=== PATIENT | male | born 1950 | race Caucasian/White ===

== ENCOUNTER 2018-10-30 13:17 | Observation (INO) ==
[2018-10-30] MEDS ORDERED: Pantoprazole 80 MG in 0.9 % Sodium Chloride 50 ML IVPB ONE (13:46)
--- NOTE | 2018-10-30 14:18 | Emergency Department Note ---
Disposition Clinical Impression: Elevated troponin, BOBBY (acute kidney injury) GI bleed Qualifiers: GI bleed type/associated pathology: unspecified gastrointestinal hemorrhage type Qualified Code(s): K92.2 - Gastrointestinal hemorrhage, unspecified Anemia Qualifiers: Anemia type: unspecified type Qualified Code(s): D64.9 - Anemia, unspecified Disposition: Admitted As Inpatient Condition: Fair Time of Disposition: 16:36 General Adult HPI - General Chief complaint: ED GI Bleed Stated complaint: black stool, weak Time Seen by Provider: 10/30/18 13:46 Source: patient Limitations: no limitations Nursing Notes Reviewed: Yes Vital Signs Reviewed: Yes - History of Present Illness HPI Narrative: Patient 67M with PMHx of diabetes and ACS x1 cardiac stent on plavix and aspirin presenting for 7 days of black tarry stools. Initially felt constipation, took milk of magnesia and that's when he noticed the stools. Admits to weakness and dizziness with standing. Denies CP, dyspnea, or syncope. Pain Scale: 0 - Related Data Home Medications Medication Instructions Recorded Confirmed Aspirin [Lo-Dose Aspirin EC] 81 mg PO DAILY 07/16/18 10/30/18 Atenolol 100 mg PO BID 07/16/18 10/30/18 Atorvastatin Calcium [Lipitor] 10 mg PO DAILY 07/16/18 10/30/18 Diclofenac Sodium [Voltaren] 75 mg PO BID 07/16/18 10/30/18 Gabapentin [Neurontin] 600 mg PO TID 07/16/18 10/30/18 Glimepiride [Amaryl] 4 mg PO DAILY 07/16/18 10/30/18 Losartan/Hydrochlorothiazide 1 each PO DAILY 07/16/18 10/30/18 [Losartan-Hctz 100-12.5 mg Tab] Metformin HCl [Glucophage] 1,000 mg PO BID 07/16/18 10/30/18 Nitroglycerin [Nitrostat] 0.4 mg SL DAILY PRN 07/16/18 10/30/18 Oxycodone HCl/Acetaminophen 1 each PO Q6H PRN 07/16/18 10/30/18 [Percocet 5-325 mg Tablet] Previous Rx's Medication Instructions Recorded Clopidogrel Bisulfate [Plavix] 75 mg PO DAILY 30 Days #30 tablet 07/16/18 Allergies Allergy/AdvReac Type Severity Reaction Status Date / Time quinapril [From Accupril] Allergy Swelling Verified 07/16/18 07:45 of Lip/Tongue/Throat All systems ED: reviewed and negative except as stated. Review of Systems: As Per HPI Constitutional: Reports: weakness. Denies: fever, chills Cardiovascular: Denies: chest pain, palpitations, dyspnea on exertion, edema, syncope Respiratory: Denies: cough, dyspnea, wheezes Gastrointestinal: Reports: melena. Denies: abdominal pain, nausea, vomiting, diarrhea, constipation, hematemesis, hematochezia Genitourinary: Denies: urgency, dysuria, frequency, hematuria Musculoskeletal: Denies: back pain, neck pain Integumentary: Denies: rash Neurological: Denies: weakness, numbness, paresthesias, confusion, abnormal gait, vertigo Past Medical History - Past Medical History Attestation: Yes The following information was validated with the patient. Medical history: Reports: diabetes, hyperlipidemia, hypertension Psychiatric history: Reports: no psych history - Social History Smoking Status: Never smoker Smokeless Tobacco Status: Yes Alcohol use: Reports: none Drug use: Reports: none Physical Exam CONSTITUTIONAL: Well-appearing; well-nourished; A&O X 3, in no apparent distress HEAD: Normocephalic; atraumatic EYES: PERRL, no scleral icterus NOSE: The nose is normal in appearance without rhinorrhea NECK: No JVD or distended neck veins RESP: Normal chest excursion with respiration; breath sounds clear and equal bilaterally; no wheezes, rhonchi, or rales CARD: Regular rhythm, without murmurs, rub or gallop ABD: Non-distended; non-tender, soft, without rigidity, rebound or guarding,no pulsatile mass RECTAL: Rectal tone intact. Hemoccult Positive. Black stool present. CHEST: No pain with palpation SKIN: Normal for age and race; warm and dry without diaphoresis ; no apparent lesions EXTREMITIES: Pulses are 2 plus and equal times 4 extremities, no peripheral edema or calf muscle pain. - General Limitations: no limitations General appearance: alert, in no apparent distress Course Course Narrative: Patient's lab work patient for hemoglobin of 10.0 which dropped 3 points compared to prior as well as AK I and a mild elevation of troponin which is suspect is due to the acute blood loss anemia. I discussed the patient's case with the hospitalist on-call and he requested consultation to GI speech therapist early intervention which was Dr. Villavicencio and he agreed to see the patient consultation after resuscitation. Discussed that the patient's vital signs have remained stable on the ED. Discussed this with the patient he agrees with the plan for admission. Vital Signs Temperature 98.1 F 10/30/18 13:27 Pulse Rate 75 10/30/18 13:27 Respiratory Rate 16 10/30/18 13:27 Blood Pressure 170/97 10/30/18 13:27 O2 Sat by Pulse Oximetry 98 10/30/18 13:27 Temperature 98.5 F 10/30/18 16:56 Pulse Rate 77 10/30/18 16:56 Respiratory Rate 18 10/30/18 16:56 Blood Pressure 147/68 10/30/18 16:56 O2 Sat by Pulse Oximetry 66 10/30/18 16:56 Oxygen Delivery Oxygen Delivery Room Air Medical Decision Making - Medical Records Medical records reviewed: Yes I reviewed the patient's medical records. - Lab Data Lab results reviewed: Yes I reviewed the patient's lab results. Result diagrams: 10/30/18 13:46 10/30/18 13:46 Lab Results 10/30/18 10/30/18 10/30/18 Range/Units 13:46 13:46 13:46 WBC 11.4 H (4.3-11.1) K/mcL RBC 3.31 L (4.19-5.50) M/mcL Hgb 10.0 L (12.9-16.9) g/dL Hct 30.2 L (37.5-50.1) % MCV 91.2 (83.0-100.0) fL MCH 30.2 (28.0-33.3) pg MCHC 33.1 (31.6-35.5) g/dL RDW 14.6 H (11.5-14.5) % Plt Count 150 (140-400) K/mcL MPV 11.5 (9.4-12.4) fL Immature Gran % 1.0 (0-4) % Seg Neutrophils % 75.7 % Lymphocytes % 10.6 % Monocytes % 7.2 % Eosinophils % 5.2 % Basophils % 0.3 % Neutrophils # 8.7 (1.6-8.9) K/mcL Lymphocytes # 1.2 (0.6-4.6) K/mcL Monocytes # 0.8 (0.0-1.3) K/mcL Eosinophils # 0.6 (0.0-0.6) K/mcL Basophils # 0.0 (0.0-0.2) K/mcL PT 12.3 H (9.4-12.1) Seconds INR 1.1 APTT 32.6 (26.0-36.0) Seconds Sodium 139 (136-145) mEq/L Potassium 4.2 (3.5-5.1) mEq/L Chloride 105 (98-107) mEq/L Carbon Dioxide 24 (23-29) mEq/L BUN 52 H (8-23) mg/dL Creatinine 1.37 H (0.70-1.30) mg/dL Est GFR ( Amer) > 60 (> 60) Est GFR (Non-Af Amer) 52 L (> 60) BUN/Creatinine Ratio 38 H (6-26) Glucose 153 H (70-105) mg/dL Calculated Osmolality 305 H (280-300) Lactic Acid (0.5-2.2) mmol/L Calcium 9.1 (8.6-10.3) mg/dL Total Bilirubin 0.6 (0.3-1.0) mg/dL AST 29 (13-39) Units/L ALT 30 (7-52) Units/L Alkaline Phosphatase 71 (34-104) Units/L Troponin I 0.04 H* (< 0.04) ng/mL Serum Total Protein 6.2 L (6.4-8.9) g/dL Albumin 3.6 (3.5-5.7) g/dL Globulin 2.6 (2.4-3.5) g/dL Albumin/Globulin Ratio 1.4 (1.1-2.2) Lipase 36 (11-82) Units/L Stool Occult Bld Scrn (Negative) Blood Type Antibody Screen 10/30/18 10/30/18 10/30/18 Range/Units 14:04 14:25 14:25 WBC (4.3-11.1) K/mcL RBC (4.19-5.50) M/mcL Hgb (12.9-16.9) g/dL Hct (37.5-50.1) % MCV (83.0-100.0) fL MCH (28.0-33.3) pg MCHC (31.6-35.5) g/dL RDW (11.5-14.5) % Plt Count (140-400) K/mcL MPV (9.4-12.4) fL Immature Gran % (0-4) % Seg Neutrophils % % Lymphocytes % % Monocytes % % Eosinophils % % Basophils % % Neutrophils # (1.6-8.9) K/mcL Lymphocytes # (0.6-4.6) K/mcL Monocytes # (0.0-1.3) K/mcL Eosinophils # (0.0-0.6) K/mcL Basophils # (0.0-0.2) K/mcL PT (9.4-12.1) Seconds INR APTT (26.0-36.0) Seconds Sodium (136-145) mEq/L Potassium (3.5-5.1) mEq/L Chloride (98-107) mEq/L Carbon Dioxide (23-29) mEq/L BUN (8-23) mg/dL Creatinine (0.70-1.30) mg/dL Est GFR ( Amer) (> 60) Est GFR (Non-Af Amer) (> 60) BUN/Creatinine Ratio (6-26) Glucose (70-105) mg/dL Calculated Osmolality (280-300) Lactic Acid 2.3 H (0.5-2.2) mmol/L Calcium (8.6-10.3) mg/dL Total Bilirubin (0.3-1.0) mg/dL AST (13-39) Units/L ALT (7-52) Units/L Alkaline Phosphatase (34-104) Units/L Troponin I (< 0.04) ng/mL Serum Total Protein (6.4-8.9) g/dL Albumin (3.5-5.7) g/dL Globulin (2.4-3.5) g/dL Albumin/Globulin Ratio (1.1-2.2) Lipase (11-82) Units/L Stool Occult Bld Scrn Positive A (Negative) Blood Type A POSITIVE Antibody Screen NEGATIVE - Radiology Data Radiology results reviewed: Yes I reviewed the patient's radiology results. Chest X-Ray 10/30/18 13:47 IMPRESSION: No active cardiopulmonary disease D/ / Erick Green MD / Erick Green MD Interpreting Provider: Erick Green MD - EKG Data EKG #1 EKG attestation: Yes I reviewed and interpreted this EKG. EKG results narrative: EKG done at 13:52 shows sinus rhythm at a rate of 68 bpm. Normal axis. Patient has T-wave inversions in the lateral leads which appear to be chronic from old EKG. This EKG appears improved from his EKG in July 2018 which she had some ST elevations in the anterior precordial leads. Attestation Statement - Attestation Attestation: I, Ruben Simpson, examined this patient and my medical decision-making was reviewed with the INSTALLATION SUPERVISOR/PA/Advanced Practice Nurse/Resident Physician. I agree with the documented findings, disposition and treatment plan as described except to the extent set forth below. 67-year-old male presents emergency Department with concerns of weakness, black stools over the past 2 weeks. Patient states he initially had constipation and then took milk of magnesia which produced a bowel movement. The bowel movement was dark and tarry and has been so since that time. Patient reports that he is becoming progressively more weak and fatigued. Vital signs have been stable in the emergency department. Hemoglobin is decreased compared to previous. Patient has a history of recent cardiac disease and has 2 stents recently placed, currently taking aspirin and Plavix. Patient will be admitted to the hospitalist for further care and evaluation. Blood was ordered from emergency department. Protonix were ordered and given in emergency department.
[2018-10-30 14:29] LABS: Basophils % 0.3 %; Eosinophils # 0.6 K/mcL (0.0-0.6); Eosinophils % 5.2 %; Hematocrit 30.2 % (37.5-50.1); Lymphocytes # 1.2 K/mcL (0.6-4.6); Lymphocytes % 10.6 %; Mean Corpuscular HGB Conc 33.1 g/dL (31.6-35.5); Mean Corpuscular Hemoglobin 30.2 pg (28.0-33.3); Mean Corpuscular Volume 91.2 fL (83.0-100.0); Mean Platelet Volume 11.5 fL (9.4-12.4); Monocytes # 0.8 K/mcL (0.0-1.3); Monocytes % 7.2 %; Neutrophils # 8.7 K/mcL (1.6-8.9); Platelet Count 150 K/mcL (140-400); Red Blood Count 3.31 M/mcL (4.19-5.50); Red Cell Distribution Width 14.6 % (11.5-14.5); Segmented Neutrophils % 75.7 %; White Blood Count 11.4 K/mcL (4.3-11.1)
[2018-10-30 14:39] LABS: Alanine Aminotransferase 30 Units/L (7-52); Albumin 3.6 g/dL (3.5-5.7); Albumin/Globulin Ratio 1.4 (1.1-2.2); Alkaline Phosphatase 71 Units/L (34-104); Aspartate Amino Transferase 29 Units/L (13-39); BUN/Creatinine Ratio 38 (6-26); Bilirubin,Total 0.6 mg/dL (0.3-1.0); Blood Urea Nitrogen 52 mg/dL (8-23); Calcium 9.1 mg/dL (8.6-10.3); Carbon Dioxide 24 mEq/L (23-29); Chloride 105 mEq/L (98-107); Globulin 2.6 g/dL (2.4-3.5); Glucose 153 mg/dL (70-105); Lipase 36 Units/L (11-82); Osmolality,Calculated 305 (280-300); Potassium 4.2 mEq/L (3.5-5.1); Sodium 139 mEq/L (136-145); Total Protein 6.2 g/dL (6.4-8.9); Troponin I 0.04 ng/mL (< 0.04); eGFR For African Americans > 60 (> 60); eGFR For Non-African Americans 52 (> 60)
[2018-10-30 14:46] LABS: INR 1.1; Prothrombin Time 12.3 Seconds (9.4-12.1)
[2018-10-30 14:49] LABS: Activated Partial Thrombo Time 32.6 Seconds (26.0-36.0)
[2018-10-30] MEDS ORDERED: 0.9 % Sodium Chloride 1,000 ML IVC ONE (15:21)
[2018-10-30] MEDS ORDERED: Acetaminophen 325 MG TABLET PO PRN (16:34)
[2018-10-30] MEDS ORDERED: Naloxone 0.4 MG/ML INJ IVP PRN (16:34)
[2018-10-30] MEDS ORDERED: Ondansetron ODT 4 MG TAB.RAPDIS SL PRN (16:34)
[2018-10-30] MEDS ORDERED: *HR* Promethazine 25 MG/ML VIAL IVP PRN (16:34)
[2018-10-30] MEDS ORDERED: Ondansetron 4 MG/2 ML VIAL IVP PRN (16:34)
--- NOTE | 2018-10-30 17:18 | Internal Med History&Physical ---
Date of Encounter: 10/30/18 Time of Encounter: 17:13 Internal Medicine - H&P: HPI Chief complaint: Melena History of present illness: Mr. Jara is a 67 year old male with history of CAD s/p stent to RCA 07/16 on ASA/Plavix presents with 1 week of black tarry stools. Patient notes that he had stent placed approximately 3 months ago and has been stable on dual antiplatelet therapy since then. Has not been on PPI. No history of GI bleed. Has not had an EGD or colonoscopy done in the past. Over the last week, patient has had 3 black tarry bowel movements per day. No abdominal pain associated with this. No bright blood per rectum. Denies lightheadedness or dizziness. In the ED, VSS. Hemoglobin of 10, baseline 13. INR normal. Lids normal. Creatinine 1.37, baseline 0.0. Chest x-ray without acute pathology. Given IV PPI. GI consult placed and patient admitted to medicine. Past Med Surg Social Fam HX - Past Medical History Medical history: diabetes, hyperlipidemia, hypertension Psychiatric history: no psych history - Past Surgical History Additional surgical history: 3 knee sureries elbow surgery, wrist surgery, heart stent - Social History Smoking Status: Never smoker Smokeless Tobacco Status: Yes Alcohol use: none Drug use: none - Family History Father Hx Family GI Disorders: Yes Internal Medicine - H&P: Meds Aspirin [Lo-Dose Aspirin EC] 81 mg PO DAILY 07/16/18 [History] Atenolol 100 mg PO BID 07/16/18 [History] Atorvastatin Calcium [Lipitor] 10 mg PO DAILY 07/16/18 [History] Clopidogrel Bisulfate [Plavix] 75 mg PO DAILY 30 Days #30 tablet 07/16/18 [Rx] Diclofenac Sodium [Voltaren] 75 mg PO BID 07/16/18 [History] Gabapentin [Neurontin] 600 mg PO TID 07/16/18 [History] Glimepiride [Amaryl] 4 mg PO DAILY 07/16/18 [History] Losartan/Hydrochlorothiazide [Losartan-Hctz 100-12.5 mg Tab] 1 each PO DAILY 07/16/18 [History] Metformin HCl [Glucophage] 1,000 mg PO BID 07/16/18 [History] Nitroglycerin [Nitrostat] 0.4 mg SL DAILY PRN 07/16/18 [History] Oxycodone HCl/Acetaminophen [Percocet 5-325 mg Tablet] 1 each PO Q6H PRN 07/16/18 [History] Allergy/AdvReac Type Severity Reaction Status Date / Time quinapril [From Accupril] Allergy Swelling Verified 07/16/18 07:45 of Lip/Tongue/Throat All Systems PM: A 10-system review of systems was performed and is negative for pertinent findings except as documented above in the HPI. Review of systems: General: Fevers / Chills / Weight loss / Night sweats Eyes: Blurry Vision / Change in Vision HENT: Ear Pain / Ear Drainage / Rhinorrhea / Throat Pain / Lymphadenopathy Cardiovascular: Chest Pain / Palpatations / Orthopnea / WREN / Weight gain Lungs: Dyspnea / Wheezing / Cough / Sputum production / Pleurisy Abdomen: Abdomen pain / Abdominal distention / Nausea / Vomiting / Diarrhea / Const / Melena : Dysuria / Urinary Frequency / Urinary Urgency / Hematuria Extremities: LE edema / Ext pain / Ext erythema Skin: Rashes / Abrasions / Contusions Psych: Hallucinations / Anxiety / Depression Neuro: Weakness / Numbness / Tingling / Facial Droop / Dysphagia - Constitutional Vitals: Temp Pulse Resp BP Pulse Ox 98.5 F 77 18 147/68 66 10/30/18 16:56 10/30/18 16:56 10/30/18 16:56 10/30/18 16:56 10/30/18 16:56 Exam: General: Ill-appearing and in no acute distress HEENT: No erythema of posterior pharynx. No exudates. Lymphatics: No mandibular or cervical lymphadenopathy Cardiovascular: RRR. No murmurs. No chest wall tenderness. Lungs: Clear to auscelltation bilaterally. Regular chest rise. Abdomen: Non-tender. No rebound or gaurding. Nl bowel sounds. Extremities: No edema. 2+ pulses radial and pedal pulses Skin: No rahses, abrasions, or contusions. Nl cap refill. Psych: Nl attention. A&Ox3 Neuro: straw hat brusher II-XII intact. 5/5 strength. Sensation to light touch and pinprick intact. Internal Med - H&P Results - Labs CBC & Chem 7: 10/30/18 13:46 10/30/18 13:46 Labs: Short CBC 10/30/18 Range/Units 13:46 WBC 11.4 H (4.3-11.1) K/mcL Hgb 10.0 L (12.9-16.9) g/dL Hct 30.2 L (37.5-50.1) % Plt Count 150 (140-400) K/mcL Neutrophils # 8.7 (1.6-8.9) K/mcL BMP 10/30/18 13:46 Sodium 139 Potassium 4.2 Chloride 105 Carbon Dioxide 24 BUN 52 H Creatinine 1.37 H Glucose 153 H Calcium 9.1 Cardiac Enzymes 10/30/18 Range/Units 13:46 Troponin I 0.04 H* (< 0.04) ng/mL Liver Function 10/30/18 Range/Units 13:46 Total Bilirubin 0.6 (0.3-1.0) mg/dL AST 29 (13-39) Units/L ALT 30 (7-52) Units/L Alkaline Phosphatase 71 (34-104) Units/L Albumin 3.6 (3.5-5.7) g/dL - Impressions ITS Impressions Chest X-Ray 10/30/18 13:47 IMPRESSION: No active cardiopulmonary disease D/ / Erick Green MD / Erick Green MD Interpreting Provider: Erick Green MD - Assessment and Plan (1) GI bleed Current Visit: Yes Status: Acute Assessment and plan: Patient with history of CAD and recent stent on dual antiplatelet therapy presents with 1 week of melena in the setting of stable vitals, nontender abdomen on physical exam, and hemoglobin 3 points below baseline. -Likely upper GI bleed given dual antiplatelet therapy and setting of melena -No history of GI bleeding or liver disease -Is actually due for a colonoscopy and is wanting to get this done inpatient PLAN: - GI consulted, recommending IV PPI and will scope patient likely tomorrow - Nothing by mouth until GI evaluation - Trend hemoglobin Qualifiers: GI bleed type/associated pathology: melena Qualified Code(s): K92.1 - Melena (2) Melena Current Visit: Yes Status: Acute Assessment and plan: See above (3) CAD (coronary artery disease) Current Visit: Yes Status: Acute Assessment and plan: History of CAD s/p stent to RCA 07/16 on ASA/Plavix. - Hold aspirin and Plavix for tonight but will need to be resumed soon after EGD - Continue statin Qualifiers: Coronary Disease-Associated Artery/Lesion type: [place] artery [place] vs. transplanted heart: [place] heart Associated angina: with unspecified angina Qualified Code(s): I25.119 - Atherosclerotic heart disease of [place] coronary artery with unspecified angina pectoris (4) Essential hypertension Current Visit: Yes Status: Acute Assessment and plan: We will hold antihypertensives in setting of GI bleeding (5) Diabetes Current Visit: Yes Status: Acute Assessment and plan: Not on insulin outpatient. Controlled with oral medications. - LDSS Qualifiers: Diabetes mellitus type: type 2 Diabetes mellitus halfway insulin use: without halfway use Diabetes mellitus complication status: without complication Qualified Code(s): E11.9 - Type 2 diabetes mellitus without complications (6) BOBBY (acute kidney injury) Current Visit: Yes Status: Acute - Time Spent With Patient Total time spent is greater than 50% in coordination of care (as documented) at patient's floor/unit and/or counseling patient:
[2018-10-30] MEDS ORDERED: *HR* Dextrose 50 % in Water (Syg) 50 ML SYRINGE IVP PRN (17:31)
[2018-10-30] MEDS ORDERED: Dextrose Gel 15 GM/37.5 ML TUBE PO PRN ×2 (17:31)
[2018-10-30] MEDS ORDERED: D5% in Water 1,000 ML IVC PRN (17:31)
[2018-10-30] MEDS ORDERED: Pantoprazole 40 MG VIAL IVP SCH (18:00)
[2018-10-30 18:20] LABS: Hematocrit 27.3 % (37.5-50.1); Mean Corpuscular Hemoglobin 29.9 pg (28.0-33.3); Mean Corpuscular Volume 90.7 fL (83.0-100.0); Mean Platelet Volume 11.7 fL (9.4-12.4); Platelet Count 119 K/mcL (140-400); Red Blood Count 3.01 M/mcL (4.19-5.50); Red Cell Distribution Width 14.6 % (11.5-14.5); White Blood Count 9.2 K/mcL (4.3-11.1)
--- NOTE | 2018-10-31 00:21 | Anesthesia Evaluation PreOp ---
Date of Encounter: 10/31/18 Time of Encounter: 06:45 - Past History Planned Operation: EGD Cardiac History: [place], HTN, Hyperlipidemia, Cardiac Stent (s/p stent to RCA 07/16/18) Pulmonary History: Denies Any Significant HX CORONER/MEDICAL EXAMINER History: Denies Any Significant HX Other Medical History: Renal (BOBBY), Diabetes Type II Anesthesia History: No Prior Anesthetic Complications, Past Anesthesia ( 3 knee sureries elbow surgery, wrist surgery, heart stent) Alcohol Use: none Drug use: none Medications and Allergies Aspirin [Lo-Dose Aspirin EC] 81 mg PO DAILY 07/16/18 [History] Atenolol 100 mg PO BID 07/16/18 [History] Atorvastatin Calcium [Lipitor] 10 mg PO DAILY 07/16/18 [History] Clopidogrel Bisulfate [Plavix] 75 mg PO DAILY 30 Days #30 tablet 07/16/18 [Rx] Diclofenac Sodium [Voltaren] 75 mg PO BID 07/16/18 [History] Gabapentin [Neurontin] 600 mg PO TID 07/16/18 [History] Glimepiride [Amaryl] 4 mg PO DAILY 07/16/18 [History] Losartan/Hydrochlorothiazide [Losartan-Hctz 100-12.5 mg Tab] 1 each PO DAILY 07/16/18 [History] Metformin HCl [Glucophage] 1,000 mg PO BID 07/16/18 [History] Nitroglycerin [Nitrostat] 0.4 mg SL DAILY PRN 07/16/18 [History] Oxycodone HCl/Acetaminophen [Percocet 5-325 mg Tablet] 1 each PO Q6H PRN 07/16/18 [History] Allergy/AdvReac Type Severity Reaction Status Date / Time quinapril [From Accupril] Allergy Swelling Verified 07/16/18 07:45 of Lip/Tongue/Throat - Meds/Allergy Pre-op Review Medications Reviewed: Yes Allergies Reviewed: Yes Beta Blockers on Current Med List: No Anesthesia Results - Labs 10/31/18 00:23 10/31/18 00:23 - Imaging EKG: report reviewed (SINUS RHYTHM LEFT VENTRICULAR HYPERTROPHY AND ST-T CHANGE Electronically Signed On 07-18-2018 8:23:15 EDT by Eren Pelayo) Additional studies: Date of Study: 07/16/2018 Procedures Performed: LEFT HEART CATH Transradial Stent w/ PTCA Single Major Vessel (proximal RCA RAFIA x 1) Indications: Abnormal Test - Stress Impressions: There is severe one vessel coronary artery disease. The left ventricle is normal and has mildly Abnormal contractility EF 45-50% Patient had successful PTCA/Drug-Eluting Stent placement in the proximal RCA. Recommendations: Optimal medical therapy of patient's disease. Aggressive risk factor modification. LV Ventriculography Ejection Method: LV Gram Ejection Fraction: 45% Wall Motion: Coronary Dominance: right Lesion Findings/Interventions * Left Main Coronary Artery The LMCA is angiographically free of disease. * Left Anterior Descending There is a 50% stenosis in the Mid LAD. The lesion has a PATRICIA flow of 3. There is a 60% stenosis in the 1st Diagonal. The lesion has a PATRICIA flow of 3. * Circumflex There is a 50% stenosis in the Distal Circumflex. The lesion has a PATRICIA flow of 3. * Right Coronary Artery There is a 12 mm long, 70-80% stenosis in the Proximal RCA. The lesion has a PATRICIA flow of 3 and has no thrombus present. An intervention was performed on the Proximal RCA with a final stenosis of 0%. There were no lesion complications. The final PATRICIA flow was 3. Complications: None, None Contrast: Isovue 112ml Procedure Summary: After informed consent was obtained, patient was brought back to the cardiac catheterization laboratory, prepped and draped in the usual sterile fashion. Timeout was observed verifying patient and procedure. The patient was given moderate IV sedation (see medication list) by a dedicated nurse under my [id number] supervision using physiologic monitoring for a total intra service time of 35 minutes. Local anesthesia was achieved. Using standard technique, arterial access was obtained and sheath placed. Catheter was placed across the aortic valve and pressures were obtained. Severe stenosis identified for intervention. Guide catheter engaged to the coronary ostia. Coronary wire placed carefully through the severe stenosis and intervention was undertaken. PTCA/Drug-Eluting Stent placement proximal RCA. 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 Interventional Device(s) Echocardiogram Name: Asad Jara Date of Study: 06/25/2018 EV/EV echocardiogram Impressions: LVEF 55-60%. Moderate left ventricular diastolic dysfunction. Normal right ventricular structure and function. Mild to moderately dilated left atrium. Mild aortic regurgitation. Mild tricuspid regurgitation. Moderate pulmonary hypertension. Stress 06/25/18 Positive Infarct, No ischemia EF-37% Small to medium sized fixed perfusion defect which is moderate in intensity in the basal and mid-inferolateral segments Anesthesia Exam Vital Signs/O2 Sat, Most Current Temp Pulse Resp BP Pulse Ox 98.5 F 64 17 142/81 99 10/31/18 04:32 10/31/18 04:32 10/31/18 04:32 10/31/18 04:32 10/31/18 04:32 Blood glucose: 82 - HEENT Pupil (Motor): Pupils equal, EOMI Mallampati: III Teeth: Normal Oral Opening: Greater than 3 - CORONER/MEDICAL EXAMINER LOC: Oriented CORONER/MEDICAL EXAMINER Motor: Normal RUE, Normal LUE, Normal RLE, Normal LLE, Normal Face CORONER/MEDICAL EXAMINER Sensory: Normal: RUE, LUE, RLE, LLE, Face - Cardiac Rhythm: Regular Murmur: None JVD: No Carotid Bruit: No - Pulmonary Breath Sounds: bilateral Clear Respiratory Effort: Symmetrical Anesthesia Assess/Plan ASA Score: 4 Anesthetic Plan: MAC Autologous Blood: Yes Monitoring Plan: Standard Monitors Recovery Plan: Other
[2018-10-31 01:10] LABS: Hematocrit 25.5 % (37.5-50.1); Hemoglobin 8.4 g/dL (12.9-16.9); Mean Corpuscular HGB Conc 32.9 g/dL (31.6-35.5); Mean Corpuscular Hemoglobin 29.9 pg (28.0-33.3); Mean Corpuscular Volume 90.7 fL (83.0-100.0); Mean Platelet Volume 11.5 fL (9.4-12.4); Platelet Count 104 K/mcL (140-400); Red Blood Count 2.81 M/mcL (4.19-5.50); Red Cell Distribution Width 14.6 % (11.5-14.5); White Blood Count 7.5 K/mcL (4.3-11.1)
[2018-10-31 01:16] LABS: BUN/Creatinine Ratio 38 (6-26); Blood Urea Nitrogen 43 mg/dL (8-23); Calcium 8.3 mg/dL (8.6-10.3); Carbon Dioxide 24 mEq/L (23-29); Chloride 108 mEq/L (98-107); Glucose 70 mg/dL (70-105); Osmolality,Calculated 297 (280-300); Potassium 3.5 mEq/L (3.5-5.1); Sodium 139 mEq/L (136-145); eGFR For African Americans > 60 (> 60); eGFR For Non-African Americans > 60 (> 60)
[2018-10-31] MEDS: Pantoprazole 40 MG in 0.9 % Sodium Chloride Mini Bag 100 ML IVC SCH ×2 (02:56→06:38)
[2018-10-31] MEDS ORDERED: *HR* Propofol 200 MG/20 ML VIAL IVP ONE ×2 (05:16→05:52)
[2018-10-31] MEDS ORDERED: *HR* Phenylephrine 10 MG/ML VIAL ONE (05:32)
[2018-10-31] MEDS: Insulin LISPRO 300 UNITS/3 ML VIAL SQ SCH ×3 (07:13→16:52)
[2018-10-31 08:45] LABS: Hematocrit 27.7 % (37.5-50.1)
[2018-10-31] MEDS: Pantoprazole 40 MG VIAL IVP SCH (09:11)
[2018-10-31] MEDS ORDERED: 0.9 % Sodium Chloride 250 ML ONE (10:41)
--- NOTE | 2018-10-31 11:10 | Gastroenterology Consult Note ---
Date of Encounter: 10/31/18 Time of Encounter: 09:35 - Assessment and plan (1) Anemia Current Visit: Yes Status: Acute Assessment and plan: On admission Hgb 10 and this AM Hgb 8.4. Continue to monitor CBC and transfuse PRBC as needed. EGD completed today which showed gastritis, nonbleeding erosive gastropathy, no nbleeding gastric ulcer. Start Carafate 4 times a day and daily PPI. Hold NSAIDs for now. Repeat EGD in 4 weeks for surveillance. Qualifiers: Anemia type: unspecified type Qualified Code(s): D64.9 - Anemia, unspecified (2) Melena Current Visit: Yes Status: Acute Assessment and plan: As above. (3) Family history of colon cancer in father Current Visit: Yes Status: Acute Assessment and plan: Patient has never had colonoscopy. Father diagnosed around age 76. Patient will need colonoscopy but will be unable to hold his Plavix until July 2019 due to cardiac stent placement on 07/16/2018. Will have patient follow up in GI office to determine diagnostic only colonoscopy or wait until he can safely hold his anticoagulation. - Time Spent With Patient Total time spent is greater than 50% in coordination of care (as documented) at patient's floor/unit and/or counseling patient: GI History of Present Illness - Data of Consult Patient: new to practice Consult date: 10/31/18 Requesting Physician: Alek Melendez - Consult Narrative Reason for consult: GI Bleed History of present illness: Mr. Jara is a 67 year old male with PMHx of DM, HLD, HTN, CAD s/p stent to [facility] 07/16/2018 on ASA/Plavix presented with one week of black tarry stools. He has been on ASA and Plavix since his [facility] and stent placement. He reports 3-4 episodes of black tarry stools over the past week. He denies abdominal pain, GERD, nausea, vomiting, diarrhea, constipation, hematochezia. On admission Hgb 10 and this AM Hgb 8.4. The patient has never had colonoscopy. He admits his father was diagnosed with colon cancer around the age 76. He is requesting a colonoscopy as well. Procedures: None NSAIDs: ASA Anticoagulation: Plavix Past Med Surg Social Fam HX - Past Medical History Medical history: diabetes, hyperlipidemia, hypertension Psychiatric history: no psych history - Past Surgical History Additional surgical history: 3 knee surgeries elbow surgery, wrist surgery, heart stent - Social History Smoking Status: Never smoker Smokeless Tobacco Status: Yes Alcohol use: none Drug use: none - Family History Father Hx Family GI Disorders: Yes - Gastrointestinal Gastrointestinal: Present: as per HPI - Constitutional Constitutional: as per HPI - EENT Eyes: as per HPI Ears: Present: as per HPI Nose, mouth and throat: Present: as per HPI - Cardiovascular Cardiovascular ROS: Present: as per HPI - Respiratory Respiratory IM: Present: as per HPI - Genitourinary Genitourinary: Absent: change in color, Urinary frequency - Neurological ROS Neurological GI: Present: as per HPI - Hematologic/Lymphatic Hematologic/Lymphatic pediatric: Present: as per HPI - Musculoskeletal Musculoskeletal ROS GI: Present: as per HPI - Integumentary Integumentary GI: Present: as per HPI - Psychiatric ROS Psychiatric GI: Present: as per HPI - Endocrine Endocrine IM: Present: as per HPI - Constitutional Vitals: Temp Pulse Resp BP Pulse Ox 98.3 F 66 16 131/76 98 10/31/18 10:58 10/31/18 10:58 10/31/18 10:58 10/31/18 10:58 10/31/18 10:58 General appearance: Present: cooperative, A&O X 3, no acute distress, answers questions appropriately - Head Head exam: Present: atraumatic, normocephalic - Eye Eye exam: Present: normal appearance, sclera anicteric - ENT ENT exam: Present: mucous membranes moist - Neck Neck exam general surgery: Present: normal inspection, trachea midline - Respiratory Respiratory exam: Present: CTAB. Absent: rales, rhonchi - Cardiovascular Cardiovascular exam: Present: RRR, +S1, +S2 - GI/Abdominal GI/Abdominal exam: Present: soft, no peritoneal signs. Absent: distended, firm, guarding, tenderness - Rectal Rectal exam: Present: deferred - Extremities Exam Extremities exam: Present: warm - Neurological Exam Neurological exam: Present: no focal deficits - Psychiatric Psychiatric exam: Present: normal affect, normal mood - Skin Skin exam: Present: dry, intact, normal color, warm Results - Labs CBC & Chem 7: 10/31/18 07:41 10/31/18 00:23 Labs: Last Result 10/31/18 00:23 Calcium 8.3 L Entire Visit 10/31/18 10/31/18 00:23 07:41 Hgb 8.4 L 9.0 L Hct 25.5 L 27.7 L - ABG ABG results: PT/INR, D-dimer PT 12.3 Seconds (9.4-12.1) H 10/30/18 13:46 - Impressions Impressions Chest X-Ray 10/30/18 13:47 IMPRESSION: No active cardiopulmonary disease D/ / Erick Green MD / Erick Green MD Interpreting Provider: Erick Green MD Consult Discharge Plan - Plan Referrals: Jim Pham Jr, MD [Primary Care Provider] -
--- NOTE | 2018-10-31 11:12 | Internal Med Progress Note ---
Hospitalist Progress Note - Encounter Date of Encounter: 10/31/18 Time of Encounter: 11:09 - Subjective Interval History: Patient had EGD done this morning. No active bleeding, however, evidence of gastric ulcer and erosive gastropathy. Feeling well right now. - Exam Vitals: Temp Pulse Resp BP Pulse Ox 98.3 F 66 16 131/76 98 10/31/18 10:58 10/31/18 10:58 10/31/18 10:58 10/31/18 10:58 10/31/18 10:58 Exam: General: Ill-appearing and in no acute distress HEENT: No erythema of posterior pharynx. No exudates. Lymphatics: No mandibular or cervical lymphadenopathy Cardiovascular: RRR. No murmurs. No chest wall tenderness. Lungs: Clear to auscelltation bilaterally. Regular chest rise. Abdomen: Non-tender. No rebound or gaurding. Nl bowel sounds. Extremities: No edema. 2+ pulses radial and pedal pulses Skin: No rahses, abrasions, or contusions. Nl cap refill. Psych: Nl attention. 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 5/5 strength. Sensation to light touch and pinprick intact. - Assessment and Plan (1) GI bleed Current Visit: Yes Status: Acute Assessment and Plan: Patient with history of CAD and recent stent on dual antiplatelet therapy presents with 1 week of melena in the setting of stable vitals, nontender abdomen on physical exam, and hemoglobin 3 points below baseline. -Patient had EGD done this morning. No active bleeding, however, evidence of gastric ulcer and erosive gastropathy. -GI recommending pantoprazole 40 mg daily, sucralfate, and repeat EGD in 4 weeks PLAN: - Pantoprazole 40 mg IV daily - Sucralfate 1 g by mouth 4 times a day - Repeat EGD in 4 weeks - Antiplatelet agents will need to be started again - will restart Plavix today and aspirin tomorrow - We will give 1 unit of blood given history of recent CAD (2) Melena Current Visit: Yes Status: Acute Assessment and Plan: See above (3) CAD (coronary artery disease) Current Visit: Yes Status: Acute Assessment and Plan: History of CAD s/p stent to RCA 07/16 on ASA/Plavix. - We will restart Plavix today and aspirin tomorrow - Continue statin (4) Essential hypertension Current Visit: Yes Status: Acute Assessment and Plan: We will hold antihypertensives in setting of GI bleeding (5) Diabetes Current Visit: Yes Status: Acute Assessment and Plan: Not on insulin outpatient. Controlled with oral medications. - LDSS (6) BOBBY (acute kidney injury) Current Visit: Yes Status: Acute Assessment and Plan: Prerenal on admission and now back to patient's baseline DVT Prophylaxis: SCDs Internal Medicine: Result - Labs CBC & Chem 7: 10/31/18 07:41 10/31/18 00:23 Labs: Short CBC 10/30/18 10/30/18 10/31/18 Range/Units 13:46 17:55 00:23 WBC 11.4 H 9.2 7.5 (4.3-11.1) K/mcL Hgb 10.0 L 9.0 L 8.4 L (12.9-16.9) g/dL Hct 30.2 L 27.3 L 25.5 L (37.5-50.1) % Plt Count 150 119 L 104 L (140-400) K/mcL Neutrophils # 8.7 (1.6-8.9) K/mcL 10/31/18 Range/Units 07:41 WBC (4.3-11.1) K/mcL Hgb 9.0 L (12.9-16.9) g/dL Hct 27.7 L (37.5-50.1) % Plt Count (140-400) K/mcL Neutrophils # (1.6-8.9) K/mcL BMP 10/30/18 10/31/18 13:46 00:23 Sodium 139 139 Potassium 4.2 3.5 Chloride 105 108 H Carbon Dioxide 24 24 BUN 52 H 43 H Creatinine 1.37 H 1.12 Glucose 153 H 70 Calcium 9.1 8.3 L Cardiac Enzymes 10/30/18 10/30/18 Range/Units 13:46 20:49 Troponin I 0.04 H* 0.04 H* (< 0.04) ng/mL Liver Function 10/30/18 Range/Units 13:46 Total Bilirubin 0.6 (0.3-1.0) mg/dL AST 29 (13-39) Units/L ALT 30 (7-52) Units/L Alkaline Phosphatase 71 (34-104) Units/L Albumin 3.6 (3.5-5.7) g/dL - ABG Interpretation ABG results: PT/INR, D-dimer PT 12.3 Seconds (9.4-12.1) H 10/30/18 13:46 - Impressions Impressions Chest X-Ray 10/30/18 13:47 IMPRESSION: No active cardiopulmonary disease D/ / Erick Green MD / Erick Green MD Interpreting Provider: Erick Green MD Consult Discharge Plan - Plan Referrals: Jim Pham Jr, MD [Primary Care Provider] - (1) GI bleed Qualifiers: Qualified Code(s): K92.1 - Melena (3) CAD (coronary artery disease) Qualifiers: Qualified Code(s): I25.119 - Atherosclerotic heart disease of [place] coronary artery with unspecified angina pectoris (5) Diabetes Qualifiers: Qualified Code(s): E11.9 - Type 2 diabetes mellitus without complications
[2018-10-31] MEDS: *HR* OxyCODONE/APAP 5/325 TABLET PO PRN ×2 (11:16→16:52)
[2018-10-31] MEDS: Gabapentin 300 MG CAPSULE PO SCH ×2 (15:45→20:28)
[2018-10-31 16:57] LABS: Hematocrit 28.5 % (37.5-50.1); Hemoglobin 9.6 g/dL (12.9-16.9)
[2018-10-31 19:27] LABS: Hemoglobin 9.7 g/dL (12.9-16.9)
[2018-11-01 01:17] LABS: Hematocrit 26.5 % (37.5-50.1)
[2018-11-01 01:19] LABS: Hemoglobin 8.7 g/dL (12.9-16.9); Immature Platelets 5.6 % (1.1-6.1); Mean Corpuscular HGB Conc 32.8 g/dL (31.6-35.5); Mean Corpuscular Volume 91.4 fL (83.0-100.0); Mean Platelet Volume 11.6 fL (9.4-12.4); Red Blood Count 2.9 M/mcL (4.19-5.50); Red Cell Distribution Width 14.6 % (11.5-14.5)
[2018-11-01 01:36] LABS: BUN/Creatinine Ratio 24 (6-26); Blood Urea Nitrogen 30 mg/dL (8-23); Calcium 7.9 mg/dL (8.6-10.3); Carbon Dioxide 26 mEq/L (23-29); Chloride 106 mEq/L (98-107); Glucose 194 mg/dL (70-105); Osmolality,Calculated 297 (280-300); Potassium 3.7 mEq/L (3.5-5.1); Sodium 138 mEq/L (136-145); eGFR For African Americans > 60 (> 60); eGFR For Non-African Americans 57 (> 60)
[2018-11-01] MEDS: Pantoprazole 40 MG VIAL IVP SCH (07:34)
[2018-11-01] MEDS: Gabapentin 300 MG CAPSULE PO SCH ×2 (07:34→14:41)
[2018-11-01] MEDS: Insulin LISPRO 300 UNITS/3 ML VIAL SQ SCH ×2 (09:49→12:08)
[2018-11-01] MEDS: *HR* OxyCODONE/APAP 5/325 TABLET PO PRN (09:49)
[2018-11-01 12:11] VITALS: BP 168/77
[2018-11-01 12:36] LABS: Basophils % 0.5 %; Eosinophils # 0.3 K/mcL (0.0-0.6); Eosinophils % 5.4 %; Hematocrit 30.8 % (37.5-50.1); Hemoglobin 10.2 g/dL (12.9-16.9); Immature Granulocytes % 0.5 % (0-4); Lymphocytes # 0.9 K/mcL (0.6-4.6); Lymphocytes % 15.6 %; Mean Corpuscular HGB Conc 33.1 g/dL (31.6-35.5); Mean Corpuscular Hemoglobin 30.4 pg (28.0-33.3); Mean Corpuscular Volume 91.7 fL (83.0-100.0); Mean Platelet Volume 11.3 fL (9.4-12.4); Monocytes # 0.4 K/mcL (0.0-1.3); Monocytes % 6.5 %; Neutrophils # 4.3 K/mcL (1.6-8.9); Platelet Count 116 K/mcL (140-400); Red Blood Count 3.36 M/mcL (4.19-5.50); Red Cell Distribution Width 14.7 % (11.5-14.5); Segmented Neutrophils % 71.5 %
[2018-11-01 12:54] LABS: Alanine Aminotransferase 40 Units/L (7-52); Albumin 3.8 g/dL (3.5-5.7); Albumin/Globulin Ratio 1.5 (1.1-2.2); Alkaline Phosphatase 81 Units/L (34-104); Aspartate Amino Transferase 43 Units/L (13-39); BUN/Creatinine Ratio 18 (6-26); Bilirubin,Total 0.6 mg/dL (0.3-1.0); Blood Urea Nitrogen 23 mg/dL (8-23); Calcium 8.5 mg/dL (8.6-10.3); Carbon Dioxide 28 mEq/L (23-29); Chloride 103 mEq/L (98-107); Globulin 2.5 g/dL (2.4-3.5); Glucose 257 mg/dL (70-105); Osmolality,Calculated 298 (280-300); Potassium 3.8 mEq/L (3.5-5.1); Sodium 138 mEq/L (136-145); Total Protein 6.3 g/dL (6.4-8.9); eGFR For African Americans > 60 (> 60); eGFR For Non-African Americans 58 (> 60)
[2018-11-01] MEDS ORDERED: Aspirin Enteric Coated 81 MG Tablet PO SCH (13:47)
--- NOTE | 2018-11-01 14:04 | Discharge Summary ---
Date of Encounter: 11/01/18 Time of Encounter: 13:47 - Discharge Diagnosis (1) GI bleed Priority: Primary Status: Acute Qualifiers: GI bleed type/associated pathology: melena Qualified Code(s): K92.1 - Melena (2) Melena Priority: Secondary Status: Acute (3) CAD (coronary artery disease) Priority: Secondary Status: Acute Qualifiers: Coronary Disease-Associated Artery/Lesion type: [place] artery [place] vs. transplanted heart: [place] heart Associated angina: with unspecified angina Qualified Code(s): I25.119 - Atherosclerotic heart disease of [place] coronary artery with unspecified angina pectoris (4) Essential hypertension Priority: Secondary Status: Acute (5) Diabetes Priority: Secondary Status: Acute Qualifiers: Diabetes mellitus type: type 2 Diabetes mellitus usp insulin use: without terminal press operator use Diabetes mellitus complication status: without complication Qualified Code(s): E11.9 - Type 2 diabetes mellitus without complications (6) BOBBY (acute kidney injury) Priority: Secondary Status: Acute Hospital course: Mr. Jara is a 67 year old male with history of CAD and recent stent on dual antiplatelet therapy presented with 1 week of melena and found to have evidence of a non-bleeding gastric ulcer and erosive gastropathy on EGD. Pantoprazole and Sucralfate initiated and Hg was stable upon discharge. ASA and Plavix were resumed given recent stent placement. Will follow-up with PCP in 1 week to have Hg re-checked and GI in 4 weeks to have EGD repeated and colonscopy done (due for this). - Time Spent with Patient Total time spent providing and/or coordinating discharge services: - Discharge Medications Prescriptions: New Pantoprazole Sodium 40 mg PO QDPC #30 tablet. Sucralfate [Carafate] 10 ml PO QIDAC #1200 ml Continued Atorvastatin Calcium [Lipitor] 10 mg PO DAILY Atenolol 100 mg PO BID Glimepiride [Amaryl] 4 mg PO DAILY Gabapentin [Neurontin] 600 mg PO TID Metformin HCl [Glucophage] 1,000 mg PO BID Oxycodone HCl/Acetaminophen [Percocet 5-325 mg Tablet] 1 each PO Q6H PRN PRN Reason: Pain Nitroglycerin [Nitrostat] 0.4 mg SL DAILY PRN PRN Reason: Chest Pain Aspirin [Lo-Dose Aspirin EC] 81 mg PO DAILY Clopidogrel Bisulfate [Plavix] 75 mg PO DAILY 30 Days #30 tablet Losartan/Hydrochlorothiazide [Losartan-Hctz 100-25 mg Tab] 1 tab PO DAILY Discontinued Diclofenac Sodium [Voltaren] 75 mg PO BID Home Medications: Aspirin [Lo-Dose Aspirin EC] 81 mg PO DAILY 07/16/18 [History] Atenolol 100 mg PO BID 07/16/18 [History] Atorvastatin Calcium [Lipitor] 10 mg PO DAILY 07/16/18 [History] Clopidogrel Bisulfate [Plavix] 75 mg PO DAILY 30 Days #30 tablet 07/16/18 [Rx] Gabapentin [Neurontin] 600 mg PO TID 07/16/18 [History] Glimepiride [Amaryl] 4 mg PO DAILY 07/16/18 [History] Metformin HCl [Glucophage] 1,000 mg PO BID 07/16/18 [History] Nitroglycerin [Nitrostat] 0.4 mg SL DAILY PRN 07/16/18 [History] Oxycodone HCl/Acetaminophen [Percocet 5-325 mg Tablet] 1 each PO Q6H PRN 07/16/18 [History] Losartan/Hydrochlorothiazide [Losartan-Hctz 100-25 mg Tab] 1 tab PO DAILY 10/31/18 [History] Pantoprazole Sodium 40 mg PO QDPC #30 tablet. 11/01/18 [Rx] Sucralfate [Carafate] 10 ml PO QIDAC #1200 ml 11/01/18 [Rx] Allergies/Adverse Reactions: Allergy/AdvReac Type Severity Reaction Status Date / Time quinapril [From Accupril] Allergy Swelling Verified 07/16/18 07:45 of Lip/Tongue/Throat Date of admission: 10/30/18 16:38 Primary care physician: Jim Pham Jr, MD Consults: 10/30/18 16:41 Consult to Gastroenterology [CONS] Stat Consulting Provider: [facility] [place] Reason for Consult: GI bleed Time Notified: 16:41 Call Completed: Yes 11/01/18 09:44 PT [Consult to Physical Therapy] [CONS] Routine Comment: Evaluate, develop and implement POC Reason for Consult: increased weakness Does patient have active BEDREST order?: No Is patient medically & hemodynamically stable?: Yes 11/01/18 09:45 OT [Consult to Occupational Therapy] [CONS] Routine Comment: Evaluate, develop and implement POC Reason for Consult: increased weakness Does patient have active BEDREST order?: No Is patient medically & hemodynamically stable?: Yes - Constitutional Vitals: Temp Pulse Resp BP Pulse Ox 98.4 F 67 16 168/77 99 11/01/18 12:10 11/01/18 12:10 11/01/18 12:10 11/01/18 12:10 11/01/18 12:10 Exam: General: Ill-appearing and in no acute distress HEENT: No erythema of posterior pharynx. No exudates. Lymphatics: No mandibular or cervical lymphadenopathy Cardiovascular: RRR. No murmurs. No chest wall tenderness. Lungs: Clear to auscelltation bilaterally. Regular chest rise. Abdomen: Non-tender. No rebound or gaurding. Nl bowel sounds. Extremities: No edema. 2+ pulses radial and pedal pulses Skin: No rahses, abrasions, or contusions. Nl cap refill. Psych: Nl attention. 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 5/5 strength. Sensation to light touch and pinprick intact. - Patient Status Disposition: Home, Self-Care Condition: Good Functional capacity at discharge: independent ambulation Overall status at discharge: patient is back to baseline - Discharge Instructions Follow Up With: Jim Pham Jr, MD [Primary Care Provider] - - Diet and Activity Activity: increase activity as tolerated Diet: low fat, low cholesterol, low salt diet
--- NOTE | 2018-11-01 14:46 | Electrocardiograph Report ---
[place] [id number] Test Date: 2018-10-30 Pat Name: Asad Jara Department: [id number] Room: 2A26 Gender: M [employer] Sl[employer] Inspector: : [id number] Requested By: Ruben Simpson Order Number: [id number] Reading MD: Ruben Wick Measurements Intervals [place] Rate: 68 P: 35 ME: 198 QRS: -15 QRSD: 108 T: 102 QT: 443 QTc: 472 Interpretive Statements Sinus rhythm Inferolateral ST changes Electronically Signed On 11-01-2018 14:44:17 EDT by Ruben Wick
== END 2018-11-01 14:53 | disposition home or self-care (01) ==
LOC: SUATTDRO → EMEROOARM 13:17 → 3ANU 13:17 → SUATTDRO 16:38 → 3ANU 17:03 → 2ANU 20:41
PROVIDERS: ADMIT Internal Medicine; ATTEND Internal Medicine

== ENCOUNTER 2018-12-17 01:14 | Observation (INO) ==
[2018-12-17] MEDS ORDERED: Naloxone 0.4 MG/ML INJ IVP PRN (04:44)
[2018-12-17 05:08] LABS: Basophils % 0.3 %; Eosinophils # 0.2 K/mcL (0.0-0.6); Eosinophils % 3.8 %; Hematocrit 31.2 % (37.5-50.1); Hemoglobin 9.8 g/dL (12.9-16.9); Immature Granulocytes % 0.3 % (0-4); Lymphocytes # 0.8 K/mcL (0.6-4.6); Lymphocytes % 13.4 %; Mean Corpuscular HGB Conc 31.4 g/dL (31.6-35.5); Mean Corpuscular Hemoglobin 26.1 pg (28.0-33.3); Mean Platelet Volume 11.6 fL (9.4-12.4); Monocytes # 0.4 K/mcL (0.0-1.3); Monocytes % 7.7 %; Neutrophils # 4.3 K/mcL (1.6-8.9); Platelet Count 120 K/mcL (140-400); Red Blood Count 3.76 M/mcL (4.19-5.50); Red Cell Distribution Width 14.3 % (11.5-14.5); Segmented Neutrophils % 74.5 %; White Blood Count 5.7 K/mcL (4.3-11.1)
[2018-12-17 05:15] LABS: INR 1.2
[2018-12-17 05:34] LABS: Alanine Aminotransferase 17 Units/L (7-52); Albumin 3.4 g/dL (3.5-5.7); Albumin/Globulin Ratio 1.3 (1.1-2.2); Alkaline Phosphatase 76 Units/L (34-104); Aspartate Amino Transferase 18 Units/L (13-39); BUN/Creatinine Ratio 14 (6-26); Bilirubin,Total 0.5 mg/dL (0.3-1.0); Blood Urea Nitrogen 18 mg/dL (8-23); Calcium 8.4 mg/dL (8.6-10.3); Carbon Dioxide 27 mEq/L (23-29); Chloride 104 mEq/L (98-107); Globulin 2.6 g/dL (2.4-3.5); Glucose 138 mg/dL (70-105); Osmolality,Calculated 288 (280-300); Potassium 3.5 mEq/L (3.5-5.1); Sodium 137 mEq/L (136-145); Troponin I 0.17 ng/mL (< 0.04); eGFR For African Americans > 60 (> 60); eGFR For Non-African Americans 56 (> 60)
[2018-12-17] MEDS ORDERED: Pantoprazole 40 MG VIAL IVP SCH (06:00)
[2018-12-17] MEDS ORDERED: Ondansetron ODT 4 MG TAB.RAPDIS SL PRN (08:10)
[2018-12-17] MEDS ORDERED: *HR* Promethazine 25 MG/ML VIAL IVP PRN (08:10)
[2018-12-17] MEDS ORDERED: *HR* Dextrose 50 % in Water (Syg) 50 ML SYRINGE IVP PRN (08:33)
[2018-12-17] MEDS ORDERED: Dextrose Gel 15 GM/37.5 ML TUBE PO PRN ×2 (08:33)
[2018-12-17] MEDS ORDERED: D5% in Water 1,000 ML IVC PRN (08:33)
--- NOTE | 2018-12-17 08:46 | Internal Med History&Physical ---
Date of Encounter: 12/17/18 Time of Encounter: 08:15 Internal Medicine - H&P: HPI Chief complaint: Fast heartrate Admitted From: Home Plans for Post Hospital Care: Home History of present illness: Mr. Jara is a 68 year old male with history of CAD and recent stent on dual antiplatelet therapy, HFrEF, and recent GIB presents with heart palpitations. Patient says that he was sitting watching TV when he began to feel very diaphoretic and anxious. Also experiencing palpitations. Took his pulse and noted it was high. No chest pain or pressure at that time although somewhat short of breath. Called EMS and was brought to [place] and found to be in a chest fibrillation with RVR and transferred to [place]. Atrial fibrillation is a new diagnosis for patient. Patient has a history of CAD status post RAFIA to RCA 07/16/18 and is on dual antiplatelet therapy. Had a GI bleed secondary to NSAID use in the setting of NSAID use for osteoarthritis in setting of DAPT during a hospital admission in October 2018. Has been doing well on PPI and sucralfate with no further bleeding episodes. Denies melena or hematochezia. Since admission to [place], patient has since converted to sinus rhythm in the 60's and heart rate. Symptoms of palpitations and diaphoresis have resolved. Patient denies chest pain. Past Med Surg Social Fam HX - Past Medical History Medical history: diabetes, GI bleed, hyperlipidemia, hypertension Additional medical history: Stomach ulcer; wears left knee brace daily Psychiatric history: no psych history - Past Surgical History Surgical History: angioplasty/stent, orthopedic, other Additional surgical history: 3 knee surgeries elbow surgery, wrist surgery, heart stent - Social History Smoking Status: Never smoker Smokeless Tobacco Status: Yes Alcohol use: none Drug use: none - Family History Father Hx Family GI Disorders: Yes Internal Medicine - H&P: Meds Aspirin [Lo-Dose Aspirin EC] 81 mg PO DAILY 07/16/18 [History] Atenolol 100 mg PO BID 07/16/18 [History] Atorvastatin Calcium [Lipitor] 10 mg PO DAILY 07/16/18 [History] Clopidogrel Bisulfate [Plavix] 75 mg PO DAILY 30 Days #30 tablet 07/16/18 [Rx] Gabapentin [Neurontin] 600 mg PO TID 07/16/18 [History] Glimepiride [Amaryl] 4 mg PO DAILY 07/16/18 [History] Metformin HCl [Glucophage] 1,000 mg PO BID 07/16/18 [History] Nitroglycerin [Nitrostat] 0.4 mg SL DAILY PRN 07/16/18 [History] Oxycodone HCl/Acetaminophen [Percocet 5-325 mg Tablet] 1 each PO Q6H PRN 07/16/18 [History] Losartan/Hydrochlorothiazide [Losartan-Hctz 100-25 mg Tab] 1 tab PO DAILY 10/31/18 [History] Pantoprazole Sodium 40 mg PO QDPC #30 tablet. 11/01/18 [Rx] Sucralfate [Carafate] 10 ml PO QIDAC #1200 ml 11/01/18 [Rx] Allergy/AdvReac Type Severity Reaction Status Date / Time quinapril [From Accupril] Allergy Swelling Verified 07/16/18 07:45 of Lip/Tongue/Throat Review of systems: General: Fevers / Chills / Weight loss / Night sweats / Diaphoresis Eyes: Blurry Vision / Change in Vision HENT: Ear Pain / Ear Drainage / Rhinorrhea / Throat Pain / Lymphadenopathy Cardiovascular: Chest Pain / Palpatations / Orthopnea / WREN / Weight gain Lungs: Dyspnea / Wheezing / Cough / Sputum production / Pleurisy Abdomen: Abdomen pain / Abdominal distention / Nausea / Vomiting / Diarrhea / Const : Dysuria / Urinary Frequency / Urinary Urgency / Hematuria Extremities: LE edema / Ext pain / Ext erythema Skin: Rashes / Abrasions / Contusions Psych: Hallucinations / Anxiety / Depression Neuro: Weakness / Numbness / Tingling / Facial Droop / Dysphagia - Constitutional Vitals: Temp Pulse Resp BP Pulse Ox 97.7 F 65 18 170/89 97 12/17/18 07:55 12/17/18 07:55 12/17/18 07:55 12/17/18 07:55 12/17/18 07:55 Exam: General: Ill-appearing and in no acute distress HEENT: No erythema of posterior pharynx. No exudates. Lymphatics: No mandibular or cervical lymphadenopathy Cardiovascular: RRR. No murmurs. No chest wall tenderness. Lungs: Clear to auscelltation bilaterally. Regular chest rise. Abdomen: Non-tender. No rebound or gaurding. Nl bowel sounds. Extremities: No edema. 2+ pulses radial and pedal pulses Skin: No rahses, abrasions, or contusions. Nl cap refill. Psych: Nl attention. 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 5/5 strength. Sensation to light touch and pinprick i ntact. Internal Med - H&P Results - Labs CBC & Chem 7: 12/17/18 04:55 12/17/18 04:55 Labs: Short CBC 12/17/18 Range/Units 04:55 WBC 5.7 (4.3-11.1) K/mcL Hgb 9.8 L (12.9-16.9) g/dL Hct 31.2 L (37.5-50.1) % Plt Count 120 L (140-400) K/mcL Neutrophils # 4.3 (1.6-8.9) K/mcL BMP 12/17/18 04:55 Sodium 137 Potassium 3.5 Chloride 104 Carbon Dioxide 27 BUN 18 Creatinine 1.28 Glucose 138 H Calcium 8.4 L Cardiac Enzymes 12/17/18 Range/Units 04:55 Troponin I 0.17 H* (< 0.04) ng/mL Liver Function 12/17/18 Range/Units 04:55 Total Bilirubin 0.5 (0.3-1.0) mg/dL AST 18 (13-39) Units/L ALT 17 (7-52) Units/L Alkaline Phosphatase 76 (34-104) Units/L Albumin 3.4 L (3.5-5.7) g/dL - Assessment and Plan (1) Atrial fibrillation with rapid ventricular response Current Visit: Yes Status: Acute Assessment and plan: Patient with history of CAD and recent stent on dual antiplatelet therapy, HFrEF, and recent GIB presents with heart palpitations and found to be in atrial fibrillation with RVR with otherwise stable vitals, unremarkable physical exam, and stable electrolytes. -Atrial fibrillation is a new diagnosis for patient -Initially in RVR but has since converted to sinus with nl rate -New diagnosis likely a consequence of CAD with recent stents: Trop elevated but more likely a result of RVR rather than the cause but will trend trop No signs of decompensation of heart failure Will ensure electrolytes are replaced PLAN: - Swap Atenolol for Metoprolol XL 100mg qd - Mg level - Keep K>4, Mg>2 - Heparin ggt - Will switch to NOAC but will wright check for patient - Cardiology consulted, appreciate recommendations (2) Elevated troponin Current Visit: No Status: Acute Assessment and plan: Trop elevated but more likely a result of RVR rather than the cause but will trend trop. - Heparin ggt - will discuss with cardiology about discontinuation and starting NOAC - Continue Plavix, Metoprolol, Statin (3) CAD (coronary artery disease) Current Visit: No Status: Acute Assessment and plan: Patient has a history of CAD status post RAFIA to RCA 07/16/18 and is on dual antiplatelet therapy. Had a GI bleed secondary to NSAID use in the setting of NSAID use for osteoarthritis in setting of DAPT during a hospital admission in October 2018. Has been doing well on PPI and sucralfate with no further bleeding episodes. Denies melena or hematochezia. And history of GI bleed, triple therapy would not be ideal. Patient will benefit from discontinuation of aspirin when starting NOAC in accordance with recent recent evidence of non- inferiority in the MAXIMUS Trial. - D/c ASA - Heparin ggt - switch to NOAC once wright checked - Continue Plavix, Metoprolol, Statin Qualifiers: Coronary Disease-Associated Artery/Lesion type: [place] artery [place] vs. transplanted heart: [place] heart Associated angina: with unspecified angina Qualified Code(s): I25.119 - Atherosclerotic heart disease of [place] coronary artery with unspecified angina pectoris (4) Hx of gastrointestinal hemorrhage Current Visit: Yes Status: Acute Assessment and plan: No recent bleeding. Will need to follow-up with GI after hospital stay for re- scope. - Continue PPI and Sucrafate (5) Diabetes Current Visit: No Status: Acute Assessment and plan: On oral medications outpatient. - LDSS Qualifiers: Diabetes mellitus type: type 2 Diabetes mellitus jail insulin use: without jail use Diabetes mellitus complication status: without com plication Qualified Code(s): E11.9 - Type 2 diabetes mellitus without com plications (6) (HFpEF) heart failure with preserved ejection fraction Current Visit: Yes Status: Acute Assessment and plan: EF of 45/50% noted on cath but has remained euvolemic without use of Lasix. C hecked weight from last hospitalization and weight has been stable. - Continue metoprolol and ARB Qualifiers: Heart failure chronicity: chronic Qualified Code(s): I50.32 - Chronic diastolic (congestive) heart failure
[2018-12-17] MEDS ORDERED: Aspirin Enteric Coated 81 MG Tablet PO SCH (09:00)
[2018-12-17] MEDS ORDERED: Losartan/HCTZ 50-12.5 TABLET PO SCH (09:00)
[2018-12-17] MEDS: Metoprolol XL (24 HR) Succ 50 MG TAB.ER.24H PO SCH (09:52)
[2018-12-17] MEDS: Insulin LISPRO 300 UNITS/3 ML VIAL SQ SCH ×2 (09:52→17:25)
[2018-12-17] MEDS: Losartan/HCTZ 50-12.5 TABLET PO SCH (09:52)
--- NOTE | 2018-12-17 10:14 | Cardiology Consult Note ---
Date of Encounter: 12/17/18 Time of Encounter: 10:13 Assessment and Plan (1) Atrial fibrillation with rapid ventricular response Current Visit: Yes Status: Acute New onset atrial fibrillation/ flutter diagnosed at [facility]. We will obtain records. No EKG available here. Denies prior history or symptoms. Currently NSR on telemetry. No afib seen. TTE 06/2018-EF 55-60%. LVEF 55-60%. Moderate left ventricular diastolic dysfunction. Normal right ventricular structure and function. Mild to moderately dilated left atrium. Mild aortic regurgitation. Mild tricuspid regurgitation. Moderate pulmonary hypertension. Agree with change to toprol XL from atenolol. On asa and plavix for recent stent. CHADS Vasc=4, HAS BLED =4. Ideally he emt intermediate AC with coumadin or NOAC would be recommended. Currently poor candidate for AC in the setting of recent GI bleed and declining Hgb. Pending repeat EGD and colonoscopy with GI. Can consider [facility] AC after cleared by GI. Patient voices understanding of CVA risk. Continue asa and plavix. (2) CAD (coronary artery disease) Current Visit: No Status: Acute H/o PCI with RAFIA to the RCA 07/2018. Moderate small vessel CAD remaining. Continue asa, statin, bb, plavix. Denies WREN (anginal equivalent) or chest pain. Qualifiers: Coronary Disease-Associated Artery/Lesion type: [place] artery [place] vs. transplanted heart: [place]las heart Associated angina: with unspecified angina Qualified Code(s): I25.119 - Atherosclerotic heart disease of [place] coronary artery with unspecified angina pectoris (3) GI bleed Current Visit: No Status: Acute Treated for GI bleed 10/2018. Monitor Hgb. Will need to continue asa and plavix. Out-pt follow up EGD colonoscopy pending. Qualifiers: GI bleed type/associated pathology: melena Qualified Code(s): K92.1 - Melena Discussion w patient/family: The assessment and plan as outlined above was discussed with the patient and/or family members who expressed understanding and agreement. All questions were answered. Thank you for involving us in the care of your patient. Please call with any questions. History of Present Illness Consult date: 12/17/18 Requesting physician: Alek Melendez Consult reason: atrial flutter Chief complaint: elevated HR, diaphoresis, anxiety History of present illness: Mr. Jara is a 68 year old male with past medical history of CAD s/p PCI 07/2018, recent GI bleed, DM type II, HTN, HLD who presented with elevated HR. He states he palpated his pulse to be 170 bpm at home. At the time he was feeling an anxious feeling in his chest and diaphoresis. He called 911 and was brought to [facility] ED by EMS. Once in the ED he was given medications with resolution of symptoms. He was reported to have atrial flutter. Unfortunately there is not an EKG of the tachycardia available for our review. Currently NSR on telemetry. He denies history of tachycardias. Past Med Surg Social Fam HX - Past Medical History Medical history: coronary artery disease, diabetes, GI bleed, hyperlipidemia, hypertension Additional medical history: Stomach ulcer; wears left knee brace daily Psychiatric history: no psych history - Past Surgical History Surgical History: angioplasty/stent, orthopedic, other Additional surgical history: 3 knee surgeries elbow surgery, wrist surgery, heart stent - Social History Smoking Status: Never smoker Smokeless Tobacco Status: Yes Alcohol use: none Drug use: none - Family History Father Hx Family GI Disorders: Yes Medications and Allergies Aspirin [Lo-Dose Aspirin EC] 81 mg PO DAILY 07/16/18 [History] Atenolol 100 mg PO BID 07/16/18 [History] Atorvastatin Calcium [Lipitor] 10 mg PO DAILY 07/16/18 [History] Clopidogrel Bisulfate [Plavix] 75 mg PO DAILY 30 Days #30 tablet 07/16/18 [Rx] Gabapentin [Neurontin] 600 mg PO TID 07/16/18 [History] Glimepiride [Amaryl] 4 mg PO DAILY 07/16/18 [History] Metformin HCl [Glucophage] 1,000 mg PO BID 07/16/18 [History] Nitroglycerin [Nitrostat] 0.4 mg SL DAILY PRN 07/16/18 [History] Oxycodone HCl/Acetaminophen [Percocet 5-325 mg Tablet] 1 each PO Q6H PRN 07/16/18 [History] Losartan/Hydrochlorothiazide [Losartan-Hctz 100-25 mg Tab] 1 tab PO DAILY 10/31/18 [History] Pantoprazole Sodium 40 mg PO QDPC #30 tablet. 11/01/18 [Rx] Sucralfate [Carafate] 10 ml PO QIDAC #1200 ml 11/01/18 [Rx] Allergy/AdvReac Type Severity Reaction Status Date / Time quinapril [From Accupril] Allergy Swelling Verified 07/16/18 07:45 of Lip/Tongue/Throat All Systems Review: The remainder of the systems were reviewed and are negative Physical Examination Vital Signs, Last 4 Hours Temp Pulse Resp BP Pulse Ox 12/17/18 07:55 97.7 F 65 18 170/89 97 General: Conversant, No Apparent Distress HEENT: Atraumatic, Normocephaly, Mucus Membranes Moist Neck: No JVD, Normal carotid pulses Cardiac: Reg Rate and Rhythm, Normal S1 and S2, No Murmur Lungs: Normal Breath Sounds, No Wheeze, Rales, Rhonchi Neuro: Alert and responsive, No focal deficits noted Abdomen: Soft, Non-Tender Skin: No rashes noted on visualized skin Musculoskeletal: No Chest Wall Tenderness Extremities: No Clubbing, No Cyanosis, No Edema, Normal Pulses Results 12/17/18 04:55 12/17/18 04:55 Lab Results 12/17/18 12/17/18 12/17/18 04:55 04:55 04:55 WBC 5.7 Hgb 9.8 L Hct 31.2 L Plt Count 120 L INR 1.2 APTT 35.0 Sodium 137 Potassium 3.5 Chloride 104 Carbon Dioxide 27 BUN 18 Creatinine 1.28 Glucose 138 H Calcium 8.4 L Total Bilirubin 0.5 AST 18 ALT 17 Alkaline Phosphatase 76 Troponin I 0.17 H* B-Natriuretic Peptide 12/17/18 04:55 WBC Hgb Hct Plt Count INR APTT Sodium Potassium Chloride Carbon Dioxide BUN Creatinine Glucose Calcium Total Bilirubin AST ALT Alkaline Phosphatase Troponin I B-Natriuretic Peptide 592 H - Imaging and Cardiology Echo: report reviewed Cardiac cath: report reviewed - EKG Interpretation EKG results cardiology: personally reviewed Consult Discharge Plan - Plan Referrals: Jim Pham Jr, MD [Primary Care Provider] - CHADS2-VASC Score - Score Age: 65-74 Sex: Male CHF History: No Hypertension history: Yes Stroke/TIA/Thromboembolism Hx: No Vascular disease history: Yes Diabetes history: Yes Score: 4 HAS-BLED Score - Score Hypertension: Uncontrolled,>160 mmhg systolic Bleeding: Prior major bleeding or predisposition to bleeding Elderly: Age>65 years Medication usage predisposing to bleeding: Antiplatelet agents, NSAIDs, Anticoagulants Score: 4
[2018-12-17 13:07] LABS: % Iron Saturation 11 % (20-55); Iron 42 mcg/dL (65-175); Transferrin 284 mg/dL (203-362)
[2018-12-17 13:25] LABS: Ferritin 13 ng/mL (20-250)
[2018-12-17 13:33] LABS: Estimated Average Glucose 151 mg/dl
[2018-12-17] MEDS ORDERED: Iron Sucrose Complex 400 MG in 0.9 % Sodium Chloride 250 ML IVPB SCH (14:00)
[2018-12-17] MEDS: Aspirin 81 MG TAB.CHEW PO SCH (15:53)
[2018-12-17] MEDS ORDERED: *HR* OxyCODONE/APAP 5/325 TABLET PO PRN (20:53)
[2018-12-17] MEDS ORDERED: Insulin LISPRO 300 UNITS/3 ML VIAL SQ SCH (21:00)
[2018-12-18 06:10] LABS: Basophils % 0.5 %; Eosinophils # 0.2 K/mcL (0.0-0.6); Eosinophils % 5.3 %; Hematocrit 32.5 % (37.5-50.1); Hemoglobin 10.1 g/dL (12.9-16.9); Immature Granulocytes % 0.2 % (0-4); Lymphocytes # 0.7 K/mcL (0.6-4.6); Lymphocytes % 15.1 %; Mean Corpuscular HGB Conc 31.1 g/dL (31.6-35.5); Mean Corpuscular Hemoglobin 26.2 pg (28.0-33.3); Mean Corpuscular Volume 84.2 fL (83.0-100.0); Mean Platelet Volume 10.9 fL (9.4-12.4); Monocytes # 0.4 K/mcL (0.0-1.3); Monocytes % 8.7 %; Neutrophils # 3.1 K/mcL (1.6-8.9); Platelet Count 112 K/mcL (140-400); Red Blood Count 3.86 M/mcL (4.19-5.50); Red Cell Distribution Width 14.2 % (11.5-14.5); Segmented Neutrophils % 70.2 %; White Blood Count 4.4 K/mcL (4.3-11.1)
[2018-12-18 06:30] LABS: BUN/Creatinine Ratio 15 (6-26); Blood Urea Nitrogen 19 mg/dL (8-23); Calcium 8.5 mg/dL (8.6-10.3); Carbon Dioxide 28 mEq/L (23-29); Chloride 103 mEq/L (98-107); Glucose 137 mg/dL (70-105); Osmolality,Calculated 296 (280-300); Potassium 3.8 mEq/L (3.5-5.1); Sodium 141 mEq/L (136-145); eGFR For African Americans > 60 (> 60); eGFR For Non-African Americans 58 (> 60)
[2018-12-18 07:51] VITALS: BP 177/85
[2018-12-18] MEDS ORDERED: amLODIPine 5 MG TABLET PO SCH (09:00)
[2018-12-18] MEDS: Metoprolol XL (24 HR) Succ 50 MG TAB.ER.24H PO SCH (09:13)
[2018-12-18] MEDS: Insulin LISPRO 300 UNITS/3 ML VIAL SQ SCH (09:14)
[2018-12-18] MEDS: Losartan/HCTZ 50-12.5 TABLET PO SCH (09:14)
[2018-12-18] MEDS: Aspirin 81 MG TAB.CHEW PO SCH (09:14)
--- NOTE | 2018-12-18 10:00 | Discharge Summary ---
- NOTES TO OUTPATIENT PROVIDER Notes to Outpatient Provider: Patient was admitted for new onset A. fib with RVR. Cardiology was consulted and his atenolol was changed to metoprolol. He had history of PUD and GI bleed and he refused anymore scopes while inpatient for which he was not placed on anticoagulation. He has iron deficiency anemia and he will be placed on iron pills. Norvasc is added for better blood pressure control. He will need to follow with GI and cardiology as outpatient. Date of Encounter: 12/18/18 Time of Encounter: 10:05 - Discharge Diagnosis (1) Atrial fibrillation with rapid ventricular response Priority: Primary Status: Acute (2) Elevated troponin Priority: Secondary Status: Resolved (3) CAD (coronary artery disease) Priority: Secondary Status: Acute Qualifiers: Coronary Disease-Associated Artery/Lesion type: [place] artery [place] vs. 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 Jara is a 68 year old male with history of CAD status post PCI, PUD and GIB, recovered HFrEF to EF 60%, ANNABELLE who was sent from [facility] [place] due to palpitation. Patient was found to have new onset A. fib with RVR. He was started on metoprolol by cardiology service and his rhythm converted to sinus rhythm morning. Limited echo showed recovered EF. Given concern about his recent GI bleed and PUD on his EGD. Patient was not started on anticoagulation. He declined any inpatient endoscopies as he has his endoscopies planned in February. His troponin elevation was related to type II event given his tachycardia presentation. Cardiology today cleared The patient for discharge a nd follow-up as outpatient. He will be discharged home in stable condition. Norvasc added for better blood pressure control and he was started on iron pills given his iron deficiency anemia. Discharge discussed with: patient - Time Spent with Patient Total time spent providing and/or coordinating discharge services: 45 minutes - Discharge Medications Prescriptions: New Ferrous Sulfate 325 mg PO DAILY #90 tablet Atorvastatin [Lipitor] 80 mg PO HS #90 tablet amLODIPine [Norvasc] 5 mg PO DAILY #90 tablet Metoprolol XL (24 HR) Succ [Toprol Xl] 100 mg PO DAILY #90 tab.er.24h Continued Glimepiride [Amaryl] 4 mg PO DAILY Gabapentin [Neurontin] 600 mg PO TID Metformin HCl [Glucophage] 1,000 mg PO BID Oxycodone HCl/Acetaminophen [Percocet 5-325 mg Tablet] 1 each PO Q6H PRN PRN Reason: Pain Nitroglycerin [Nitrostat] 0.4 mg SL DAILY PRN PRN Reason: Chest Pain Aspirin [Lo-Dose Aspirin EC] 81 mg PO DAILY Clopidogrel Bisulfate [Plavix] 75 mg PO DAILY 30 Days #30 tablet Losartan/Hydrochlorothiazide [Losartan-Hctz 100-25 mg Tab] 1 tab PO DAILY Sucralfate [Carafate] 1 g PO BID Pantoprazole Sodium 40 mg PO QDPC #90 tablet.dr Discontinued Atorvastatin Calcium [Lipitor] 10 mg PO DAILY Atenolol 100 mg PO BID Home Medications: Aspirin [Lo-Dose Aspirin EC] 81 mg PO DAILY 07/16/18 [History] Clopidogrel Bisulfate [Plavix] 75 mg PO DAILY 30 Days #30 tablet 07/16/18 [Rx] Gabapentin [Neurontin] 600 mg PO TID 07/16/18 [History] Glimepiride [Amaryl] 4 mg PO DAILY 07/16/18 [History] Metformin HCl [Glucophage] 1,000 mg PO BID 07/16/18 [History] Nitroglycerin [Nitrostat] 0.4 mg SL DAILY PRN 07/16/18 [History] Oxycodone HCl/Acetaminophen [Percocet 5-325 mg Tablet] 1 each PO Q6H PRN 07/16/18 [History] Losartan/Hydrochlorothiazide [Losartan-Hctz 100-25 mg Tab] 1 tab PO DAILY 10/31/18 [History] Sucralfate [Carafate] 1 g PO BID 12/17/18 [History] Atorvastatin [Lipitor] 80 mg PO HS #90 tablet 12/18/18 [Rx] Ferrous Sulfate 325 mg PO DAILY #90 tablet 12/18/18 [Rx] Metoprolol XL (24 HR) Succ [Toprol Xl] 100 mg PO DAILY #90 tab.er.24h 12/18/18 [Rx] Pantoprazole Sodium 40 mg PO QDPC #90 tablet. 12/18/18 [Rx] amLODIPine [Norvasc] 5 mg PO DAILY #90 tablet 12/18/18 [Rx] Allergies/Adverse Reactions: Allergy/AdvReac Type Severity Reaction Status Date / Time quinapril [From Accupril] Allergy Swelling Verified 07/16/18 07:45 of Lip/Tongue/Throat Date of admission: 12/17/18 03:24 Primary care physician: Jim Pham Jr, MD Consults: 12/17/18 04:43 Consult to Cardiology [CONS] Routine Comment: Consulting Provider: [facility] [place] Reason for Consult: New-onset A. fib flutter Call Completed: No - Constitutional Vitals: Temp Pulse Resp BP Pulse Ox 97.8 F 62 18 177/85 95 12/18/18 07:50 12/18/18 07:50 12/18/18 07:50 12/18/18 07:50 12/18/18 09:05 Exam: General: Ill-appearing and in no acute distress HEENT: No erythema of posterior pharynx. No exudates. Lymphatics: No mandibular or cervical lymphadenopathy Cardiovascular: RRR. No murmurs. No chest wall tenderness. Lungs: Clear to auscelltation bilaterally. Regular chest rise. Abdomen: Non-tender. No rebound or gaurding. Nl bowel sounds. Extremities: No edema. 2+ pulses radial and pedal pulses Skin: No rahses, abrasions, or contusions. Nl cap refill. Psych: Nl attention. 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 5/5 strength. Sensation to light touch and pinprick intact. - Patient Status Disposition: Home, Self-Care Condition: Good Functional capacity at discharge: independent ambulation Overall status at discharge: patient is back to baseline - Discharge Instructions Follow Up With: Jim Pham Jr, MD [Primary Care Provider] - Kash,Sergio M, DO [Partnered Physician] - Tariq Lynn MD [Partnered Physician] - - Diet and Activity Activity: increase activity as tolerated Diet: low salt diet
[2018-12-18] MEDS ORDERED: FLU Vac QV 19-20 (6Month+)/PF 0.5 ML SYRINGE IM ONE (10:10)
[2018-12-18] MEDS ORDERED: Sucralfate 1 GM TABLET PO SCH (11:30)
--- NOTE | 2018-12-18 13:01 | Cardiology Progress Note ---
Date of Encounter: 12/18/18 Time of Encounter: 10:15 Assessment and Plan (1) Atrial fibrillation with rapid ventricular response Status: Acute New onset atrial fibrillation/ flutter diagnosed at [facility] Attempting to obtain records. No EKG available here. Denies prior history or symptoms. Currently NSR on telemetry. No afib seen during stay here. TTE 06/2018-EF 55-60%. LVEF 55-60%. Moderate left ventricular diastolic dysfunction. Normal right ventricular structure and function. Mild to moderately dilated left atrium. Mild aortic regurgitation. Mild tricuspid regurgitation. Moderate pulmonary hypertension. Agree with change to toprol XL from atenolol. On asa and plavix for recent stent. CHADS Vasc=4, HAS BLED =4. Ideally he snf AC with coumadin or NOAC would be recommended. Currently poor candidate for AC in the setting of recent GI bleed and declining Hgb. Pending repeat EGD and colonoscopy with GI. Can consider snf AC after cleared by GI. Patient voices understanding of CVA risk. Continue asa and plavix. (2) CAD (coronary artery disease) Status: Acute H/o PCI with RAFIA to the RCA 07/2018. Moderate small vessel CAD remaining. Continue asa, statin, bb, plavix. Denies WREN (anginal equivalent) or chest pain. Qualifiers: Coronary Disease-Associated Artery/Lesion type: [place] artery [place] vs. transplanted heart: [place] heart Associated angina: with unspecified angina Qualified Code(s): I25.119 - Atherosclerotic heart disease of [place] coronary artery with unspecified angina pectoris (3) GI bleed Status: Acute Treated for GI bleed 10/2018. Monitor Hgb. Will need to continue asa and plavix. Out-pt follow up EGD colonoscopy pending. Qualifiers: GI bleed type/associated pathology: melena Qualified Code(s): K92.1 - Melena (4) Essential hypertension Status: Acute Add norvasc. Uncontrolled. Low sodium diet. Discussion w patient/family: The assessment and plan as outlined above was discussed with the patient and/or family members who expressed understanding and agreement. All questions were answered. Thank you for involving us in the care of your patient. Please call with any questions. Subjective Principal diagnosis: atrial tachycardia Interval history: Mr. Jara is ambulating in room. Denies chest pain or SOB. Objective Vital Signs, Last 4 Hours Pulse Ox 12/18/18 09:05 95 General: Conversant, No Apparent Distress HEENT: Atraumatic, Normocephaly, Mucus Membranes Moist Neck: No JVD, Normal carotid pulses Cardiac: Reg Rate and Rhythm, Normal S1 and S2, No Murmur Lungs: Normal Breath Sounds, No Wheeze, Rales, Rhonchi Neuro: Alert and responsive, No focal deficits noted Abdomen: Soft, Non-Tender Skin: No rashes noted on visualized skin Musculoskeletal: No Chest Wall Tenderness Extremities: No Clubbing, No Cyanosis, No Edema, Normal Pulses Results 12/18/18 05:37 12/18/18 05:37 Lab Results 12/17/18 12/17/18 12/17/18 12:26 12:26 17:44 WBC Hgb Hct Plt Count Sodium Potassium Chloride Carbon Dioxide BUN Creatinine Glucose Calcium Troponin I 0.16 H* 0.16 H* TSH 3.051 12/18/18 12/18/18 05:37 05:37 WBC 4.4 Hgb 10.1 L Hct 32.5 L Plt Count 112 L Sodium 141 Potassium 3.8 Chloride 103 Carbon Dioxide 28 BUN 19 Creatinine 1.24 Glucose 137 H Calcium 8.5 L Troponin I TSH - Imaging and Cardiology Echo: report reviewed - EKG Interpretation EKG results cardiology: personally reviewed Consult Discharge Plan - Plan Instructions: Atrial Fibrillation (DC) Referrals: Tariq Lynn MD [Partnered Physician] - Jim Pham Jr, MD [Primary Care Provider] - 12/24/18 3:30 pm (Follow up apt made on 12/18/2018.) Sergio Hewitt DO [Partnered Physician] - Prescriptions: Ferrous Sulfate 325 mg PO DAILY #90 tablet Prescription Printed Atorvastatin [Lipitor] 80 mg PO HS #90 tablet Prescription Printed amLODIPine [Norvasc] 5 mg PO DAILY #90 tablet Prescription Printed Pantoprazole Sodium 40 mg PO QDPC #90 tablet.dr Prescription Printed Metoprolol XL (24 HR) Succ [Toprol Xl] 100 mg PO DAILY #90 tab.er.24h Prescription Printed
== END 2018-12-18 11:01 | disposition home or self-care (01) ==
LOC: 2ANU → SUATTDRO 03:24
PROVIDERS: ADMIT Internal Medicine; ATTEND Internal Medicine

== ENCOUNTER 2020-08-01 20:11 | Observation (INO) ==
[2020-08-01] MEDS ORDERED: Naloxone 0.4 MG/ML INJ IVP PRN (23:38)
[2020-08-01] MEDS ORDERED: Melatonin 3 MG TABLET PO PRN (23:38)
[2020-08-01] MEDS ORDERED: Acetaminophen 325 MG TABLET PO PRN (23:38)
[2020-08-01] MEDS ORDERED: *HR* Promethazine 25 MG/ML VIAL IM PRN (23:38)
[2020-08-01] MEDS ORDERED: Ondansetron 4 MG/2 ML VIAL IVP PRN (23:38)
[2020-08-01] MEDS ORDERED: *HR* Heparin 5,000 UNIT/ML VIAL IVP PRN ×2 (23:42)
[2020-08-01] MEDS ORDERED: *HR* Dextrose 50 % in Water (Vial) 50 ML VIAL IVP PRN (23:45)
[2020-08-01] MEDS ORDERED: Dextrose Gel 15 GM/37.5 ML TUBE PO PRN ×2 (23:45)
[2020-08-01] MEDS ORDERED: Heparin 25,000UNIT/250ML 1/2NS 25,000 UNIT/250 ML IV.SOLN IVC SCH (23:45)
[2020-08-01] MEDS ORDERED: D5% in Water 1,000 ML IVC PRN (23:45)
[2020-08-02 01:14] LABS: Red Cell Distribution Width 14.4 % (11.5-14.5); White Blood Count 6.1 K/mcL (4.3-11.1)
[2020-08-02 01:16] LABS: Basophils % 0.5 %; Eosinophils # 0.1 K/mcL (0.0-0.6); Eosinophils % 1.2 %; Hematocrit 35.3 % (37.5-50.1); Hemoglobin 11.5 g/dL (12.9-16.9); Immature Granulocytes % 0.5 % (0-4); Immature Platelets 4.5 % (1.1-6.1); Lymphocytes # 0.9 K/mcL (0.6-4.6); Mean Corpuscular HGB Conc 32.6 g/dL (31.6-35.5); Mean Corpuscular Hemoglobin 28.3 pg (28.0-33.3); Mean Corpuscular Volume 86.9 fL (83.0-100.0); Mean Platelet Volume 11.2 fL (9.4-12.4); Monocytes # 0.5 K/mcL (0.0-1.3); Monocytes % 8.8 %; Neutrophils # 4.6 K/mcL (1.6-8.9); Red Blood Count 4.06 M/mcL (4.19-5.50)
[2020-08-02 01:23] LABS: INR 1.5; Prothrombin Time 17.3 Seconds (9.4-12.1)
[2020-08-02 01:26] LABS: Activated Partial Thrombo Time 42.7 Seconds (26.0-36.0)
[2020-08-02 01:32] LABS: Platelet Count 88 K/mcL (140-400)
[2020-08-02 01:33] LABS: Large Platelets Present (Not Present); Platelet Estimate Slight Decrease (Normal)
[2020-08-02 01:34] LABS: Alanine Aminotransferase 35 Units/L (7-52); Albumin 3.4 g/dL (3.5-5.7); Albumin/Globulin Ratio 1.3 (1.1-2.2); Alkaline Phosphatase 92 Units/L (34-104); Aspartate Amino Transferase 24 Units/L (13-39); BUN/Creatinine Ratio 27 (6-26); Bilirubin,Total 0.6 mg/dL (0.3-1.0); Blood Urea Nitrogen 25 mg/dL (8-23); Calcium 8.2 mg/dL (8.6-10.3); Carbon Dioxide 24 mEq/L (23-29); Chloride 105 mEq/L (98-107); Chol/HDL Ratio 3.1 (0-4.9); Cholesterol 91 mg/dL (< 200); Globulin 2.6 g/dL (2.4-3.5); Glucose 166 mg/dL (70-105); HDL Cholesterol 29 mg/dL (40-59); LDL Cholesterol,Calculated 28 mg/dL (< 100); Magnesium 1.9 mg/dL (1.6-2.6); Osmolality,Calculated 294 (280-300); Potassium 3.4 mEq/L (3.5-5.1); Sodium 138 mEq/L (136-145); Triglycerides 169 mg/dL (< 150); Troponin I 0.07 ng/mL (< 0.04); eGFR For African Americans > 60 (> 60); eGFR For Non-African Americans > 60 (> 60)
[2020-08-02 07:06] LABS: Heparin anti-factor XA UFH 0.79 IU/mL (0.30-0.70)
[2020-08-02 07:58] LABS: Activated Partial Thrombo Time 99.3 Seconds (26.0-36.0)
[2020-08-02] MEDS ORDERED: DilTIAZem CD (24hr) 240 MG CAP.ER.24H PO ONE (08:38)
[2020-08-02] MEDS ORDERED: amLODIPine 5 MG TABLET PO SCH (09:00)
[2020-08-02] MEDS ORDERED: Metoprolol XL (24 HR) Succ 50 MG TAB.ER.24H PO SCH (09:00)
[2020-08-02] MEDS ORDERED: Aspirin Enteric Coated 81 MG Tablet PO SCH (09:00)
[2020-08-02] MEDS ORDERED: *HR* OxyCODONE/APAP 5/325 TABLET PO PRN (10:03)
[2020-08-02] MEDS ORDERED: Nitroglycerin 0.4 MG TAB.SUBL SL PRN (10:03)
[2020-08-02] MEDS ORDERED: hydroCHLOROthiazide 25 MG TABLET PO SCH (10:15)
[2020-08-02 11:33] VITALS: BP 158/96
[2020-08-02] MEDS ORDERED: Gabapentin 300 MG CAPSULE PO SCH (15:00)
[2020-08-02] MEDS ORDERED: Insulin DETEMIR 100 UNIT/ML X5UNITS SUBQ SCH (21:00)
[2020-08-02] MEDS ORDERED: Apixaban 5 MG TABLET PO SCH (21:00)
== END 2020-08-02 11:34 | disposition home or self-care (01) ==
LOC: 2NENU
PROVIDERS: ADMIT Family Medicine; ATTEND Family Medicine

== ENCOUNTER 2021-02-20 00:14 | Observation (INO) ==
[2021-02-20] MEDS ORDERED: Ondansetron 4 MG/2 ML VIAL IVP PRN (10:24)
[2021-02-20] MEDS ORDERED: Acetaminophen 325 MG TABLET PO PRN (10:24)
[2021-02-20] MEDS ORDERED: Naloxone 0.4 MG/ML INJ IVP PRN (10:24)
[2021-02-20] MEDS ORDERED: Morphine Sulfate 2 MG/ML SYRINGE IVP PRN (10:29)
[2021-02-20] MEDS ORDERED: D5% in Water 1,000 ML IVC PRN (10:30)
[2021-02-20] MEDS ORDERED: Perflutren Lipid Microsphere 1.3 ML in 0.9 % Sodium Chloride 8.7 ML IVP PRN (10:30)
[2021-02-20] MEDS ORDERED: *HR* Dextrose 50 % in Water (Syg) 50 ML SYRINGE IVP PRN (10:30)
[2021-02-20] MEDS ORDERED: Dextrose Gel 15 GM/37.5 ML TUBE PO PRN ×2 (10:30)
[2021-02-20 11:42] LABS: Basophils % 0.4 %; Eosinophils # 0.1 K/mcL (0.0-0.6); Eosinophils % 1.8 %; Hematocrit 36.5 % (37.5-50.1); Hemoglobin 11.2 g/dL (12.9-16.9); Immature Granulocytes % 0.4 % (0-4); Lymphocytes # 0.6 K/mcL (0.6-4.6); Mean Corpuscular HGB Conc 30.7 g/dL (31.6-35.5); Mean Corpuscular Hemoglobin 25.9 pg (28.0-33.3); Mean Corpuscular Volume 84.3 fL (83.0-100.0); Mean Platelet Volume 11.8 fL (9.4-12.4); Monocytes # 0.5 K/mcL (0.0-1.3); Monocytes % 9.6 %; Neutrophils # 3.7 K/mcL (1.6-8.9); Platelet Count 109 K/mcL (140-400); Red Blood Count 4.33 M/mcL (4.19-5.50); Red Cell Distribution Width 16.1 % (11.5-14.5); Segmented Neutrophils % 74.8 %; White Blood Count 4.9 K/mcL (4.3-11.1)
[2021-02-20 11:43] LABS: Estimated Average Glucose 217 mg/dl; Hemoglobin A1C 9.2 %
[2021-02-20 11:50] LABS: INR 1.5; Prothrombin Time 16.8 Seconds (9.4-12.1)
[2021-02-20 12:15] LABS: Alanine Aminotransferase 32 Units/L (7-52); Albumin 3.4 g/dL (3.5-5.7); Albumin/Globulin Ratio 1.4 (1.1-2.2); Alkaline Phosphatase 117 Units/L (34-104); Aspartate Amino Transferase 37 Units/L (13-39); BUN/Creatinine Ratio 23 (6-26); Bilirubin,Total 0.8 mg/dL (0.3-1.0); Blood Urea Nitrogen 25 mg/dL (8-23); Calcium 8.1 mg/dL (8.6-10.3); Carbon Dioxide 24 mEq/L (23-29); Chloride 106 mEq/L (98-107); Chol/HDL Ratio 3.3 (0-4.9); Cholesterol 102 mg/dL (< 200); Globulin 2.5 g/dL (2.4-3.5); Glucose 162 mg/dL (70-105); HDL Cholesterol 31 mg/dL (40-59); LDL Cholesterol,Calculated 46 mg/dL (< 100); Osmolality,Calculated 294 (280-300); Potassium 3.9 mEq/L (3.5-5.1); Sodium 138 mEq/L (136-145); Total Protein 5.9 g/dL (6.4-8.9); Triglycerides 124 mg/dL (< 150); eGFR For African Americans > 60 (> 60); eGFR For Non-African Americans > 60 (> 60)
[2021-02-20] MEDS: Insulin LISPRO 300 UNITS/3 ML VIAL SUBQ SCH ×3 (12:36→20:39)
[2021-02-20] MEDS: Furosemide 20 MG/2 ML VIAL IVP SCH (14:50)
[2021-02-20] MEDS: DilTIAZem CD (24hr) 300 MG CAP.ER.24H PO SCH (14:50)
[2021-02-20] MEDS: Metoprolol XL (24 HR) Succ 50 MG TAB.ER.24H PO SCH (14:50)
[2021-02-20] MEDS: Heparin 25,000UNIT/250ML 1/2NS 25,000 UNIT/250 ML IV.SOLN IVC SCH (16:44)
[2021-02-20] MEDS ORDERED: Heparin 25,000UNIT/250ML 1/2NS 25,000 UNIT/250 ML IV.SOLN IVC SCH (17:00)
[2021-02-20] MEDS ORDERED: *HR* Heparin 5,000 UNIT/ML VIAL IVP PRN ×2 (17:00)
[2021-02-20 17:49] LABS: Activated Partial Thrombo Time 41.5 Seconds (26.0-36.0)
[2021-02-20 18:37] LABS: Heparin anti-factor XA UFH 0.47 IU/mL (0.30-0.70)
[2021-02-20] MEDS: Insulin DETEMIR 100 UNIT/ML X5UNITS SUBQ SCH (20:39)
[2021-02-21 00:39] LABS: Hemoglobin 10.8 g/dL (12.9-16.9); Immature Platelets 4.6 % (1.1-6.1); Mean Corpuscular HGB Conc 29.2 g/dL (31.6-35.5); Mean Corpuscular Hemoglobin 25.7 pg (28.0-33.3); Mean Corpuscular Volume 88.1 fL (83.0-100.0); Mean Platelet Volume 11.8 fL (9.4-12.4); Red Blood Count 4.2 M/mcL (4.19-5.50); White Blood Count 3.8 K/mcL (4.3-11.1)
[2021-02-21 00:52] LABS: BUN/Creatinine Ratio 20 (6-26); Blood Urea Nitrogen 25 mg/dL (8-23); Calcium 7.8 mg/dL (8.6-10.3); Carbon Dioxide 26 mEq/L (23-29); Chloride 107 mEq/L (98-107); Glucose 132 mg/dL (70-105); Osmolality,Calculated 298 (280-300); Sodium 141 mEq/L (136-145); eGFR For African Americans > 60 (> 60); eGFR For Non-African Americans 57 (> 60)
[2021-02-21] MEDS: Insulin LISPRO 300 UNITS/3 ML VIAL SUBQ SCH ×4 (08:02→21:25)
[2021-02-21] MEDS: Metoprolol XL (24 HR) Succ 50 MG TAB.ER.24H PO SCH (09:45)
[2021-02-21] MEDS: DilTIAZem CD (24hr) 300 MG CAP.ER.24H PO SCH (09:45)
[2021-02-21] MEDS: Furosemide 20 MG/2 ML VIAL IVP SCH (09:45)
[2021-02-21] MEDS: Aspirin 81 MG TAB.CHEW PO SCH (09:45)
[2021-02-21] MEDS: Heparin 25,000UNIT/250ML 1/2NS 25,000 UNIT/250 ML IV.SOLN IVC SCH ×2 (09:46→22:15)
[2021-02-21] MEDS: Insulin DETEMIR 100 UNIT/ML X5UNITS SUBQ SCH (21:25)
[2021-02-22] MEDS: DilTIAZem CD (24hr) 300 MG CAP.ER.24H PO SCH (08:50)
[2021-02-22] MEDS: Insulin LISPRO 300 UNITS/3 ML VIAL SUBQ SCH ×3 (08:50→18:25)
[2021-02-22] MEDS: Furosemide 20 MG/2 ML VIAL IVP SCH (08:51)
[2021-02-22] MEDS: Aspirin 81 MG TAB.CHEW PO SCH (08:51)
[2021-02-22] MEDS: Metoprolol XL (24 HR) Succ 50 MG TAB.ER.24H PO SCH (08:51)
[2021-02-22 09:59] LABS: Basophils % 0.5 %; Eosinophils # 0.1 K/mcL (0.0-0.6); Eosinophils % 1.7 %; Hematocrit 35.7 % (37.5-50.1); Hemoglobin 11.1 g/dL (12.9-16.9); Immature Granulocytes % 0.5 % (0-4); Lymphocytes # 0.7 K/mcL (0.6-4.6); Lymphocytes % 16.5 %; Mean Corpuscular HGB Conc 31.1 g/dL (31.6-35.5); Mean Corpuscular Hemoglobin 26.2 pg (28.0-33.3); Mean Corpuscular Volume 84.4 fL (83.0-100.0); Mean Platelet Volume 11.9 fL (9.4-12.4); Monocytes # 0.3 K/mcL (0.0-1.3); Monocytes % 8.1 %; Neutrophils # 2.9 K/mcL (1.6-8.9); Platelet Count 112 K/mcL (140-400); Red Blood Count 4.23 M/mcL (4.19-5.50); Red Cell Distribution Width 16.2 % (11.5-14.5); Segmented Neutrophils % 72.7 %; White Blood Count 4.1 K/mcL (4.3-11.1)
[2021-02-22 10:09] LABS: BUN/Creatinine Ratio 21 (6-26); Blood Urea Nitrogen 24 mg/dL (8-23); Calcium 8.3 mg/dL (8.6-10.3); Carbon Dioxide 27 mEq/L (23-29); Chloride 106 mEq/L (98-107); Glucose 187 mg/dL (70-105); Osmolality,Calculated 297 (280-300); Potassium 3.9 mEq/L (3.5-5.1); Sodium 139 mEq/L (136-145); eGFR For African Americans > 60 (> 60); eGFR For Non-African Americans > 60 (> 60)
[2021-02-22] MEDS ORDERED: *HR* Heparin 10,000 UNIT/10 ML VIAL ONE ×2 (12:15→13:28)
[2021-02-22] MEDS ORDERED: Nitroglycerin 1,000 MCG/5 ML VIAL IV ONE (12:15)
[2021-02-22] MEDS ORDERED: 0.9 % Sodium Chloride 2,000 ML ONE (12:15)
[2021-02-22] MEDS ORDERED: ISOVUE-370 200 ML INFUS..BTL ONE (12:15)
[2021-02-22] MEDS ORDERED: Heparin 1,000 UNITS/500 mL 500 ML ONE (12:15)
[2021-02-22] MEDS ORDERED: *HR* Midazolam HCl 2 MG/2 ML VIAL ONE (13:09)
[2021-02-22] MEDS ORDERED: *HR* FentaNYL (PF) 100 MCG/2 ML VIAL ONE (13:09)
[2021-02-22] MEDS ORDERED: Aspirin 325 MG TABLET ONE (13:30)
[2021-02-22] MEDS ORDERED: 0.9 % Sodium Chloride 1,000 ML IVC SCH (14:45)
[2021-02-22] MEDS: Heparin 25,000UNIT/250ML 1/2NS 25,000 UNIT/250 ML IV.SOLN IVC SCH (15:46)
[2021-02-22 19:27] VITALS: BP 137/83; PULSE 72; TEMP 98.3; O2SAT 97
[2021-02-22] MEDS ORDERED: Apixaban 5 MG TABLET PO SCH (21:00)
== END 2021-02-22 20:00 | disposition home or self-care (01) ==
LOC: 3BNU
PROVIDERS: ADMIT Student in an Organized Health Care Education/Training Program; ATTEND Student in an Organized Health Care Education/Training Program

== ENCOUNTER 2021-07-05 18:22 | Observation (INO) ==
[2021-07-05] MEDS ORDERED: Ondansetron 4 MG/2 ML VIAL IVP ONE (18:32)
[2021-07-05 19:15] LABS: Basophils % 0.2 %; Eosinophils % 0.2 %; Hemoglobin 13.1 g/dL (12.9-16.9); Immature Granulocytes % 0.5 % (0-4); Lymphocytes # 0.3 K/mcL (0.6-4.6); Lymphocytes % 2.5 %; Mean Corpuscular HGB Conc 30.5 g/dL (31.6-35.5); Mean Corpuscular Hemoglobin 25.9 pg (28.0-33.3); Mean Corpuscular Volume 85.1 fL (83.0-100.0); Mean Platelet Volume 11.3 fL (9.4-12.4); Monocytes # 0.5 K/mcL (0.0-1.3); Monocytes % 4.1 %; Neutrophils # 11.6 K/mcL (1.6-8.9); Platelet Count 201 K/mcL (140-400); Red Blood Count 5.05 M/mcL (4.19-5.50); Red Cell Distribution Width 16.8 % (11.5-14.5); Segmented Neutrophils % 92.5 %; White Blood Count 12.6 K/mcL (4.3-11.1)
[2021-07-05 19:25] LABS: INR 1.7; Prothrombin Time 18.8 Seconds (9.4-12.1)
[2021-07-05 19:27] LABS: Activated Partial Thrombo Time 35.3 Seconds (26.0-36.0)
[2021-07-05 20:16] LABS: Blood Urea Nitrogen 37 mg/dL (8-23); Carbon Dioxide 17 mEq/L (23-29); Chloride 103 mEq/L (98-107); Glucose 187 mg/dL (70-105); Osmolality,Calculated 300 (280-300); Potassium 4.1 mEq/L (3.5-5.1); Sodium 138 mEq/L (136-145); Troponin I 0.03 ng/mL (< 0.04)
[2021-07-05 20:35] LABS: Alanine Aminotransferase 33 Units/L (7-52); Albumin 4.1 g/dL (3.5-5.7); Albumin/Globulin Ratio 1.4 (1.1-2.2); Alkaline Phosphatase 132 Units/L (34-104); Aspartate Amino Transferase 35 Units/L (13-39); BUN/Creatinine Ratio 27 (6-26); Bilirubin,Total 1.5 mg/dL (0.3-1.0); Calcium 8.9 mg/dL (8.6-10.3); Globulin 2.9 g/dL (2.4-3.5); Magnesium 1.8 mg/dL (1.6-2.6); eGFR For African Americans > 60 (> 60); eGFR For Non-African Americans 52 (> 60)
[2021-07-05] MEDS: DilTIAZem 50 MG/50 ML IV.SOLN IVC SCH (21:18)
[2021-07-05] MEDS ORDERED: Ringers Solution, Lactated 1,000 ML IVC ONE (21:19)
[2021-07-05] MEDS ORDERED: 0.9 % Sodium Chloride 1,000 ML IVC ONE (21:23)
[2021-07-05] MEDS ORDERED: Naloxone 0.4 MG/ML INJ IVP PRN (21:42)
[2021-07-05] MEDS ORDERED: *HR* HYDROcodone/Acet 5/325 mg TABLET PO PRN (21:42)
[2021-07-05] MEDS ORDERED: Melatonin 3 MG TABLET PO PRN (21:42)
[2021-07-05] MEDS ORDERED: Acetaminophen 325 MG TABLET PO PRN (21:42)
[2021-07-05] MEDS ORDERED: *HR* Promethazine 25 MG/ML VIAL IM PRN (21:42)
[2021-07-05] MEDS ORDERED: Ondansetron 4 MG/2 ML VIAL IVP PRN (21:42)
[2021-07-05] MEDS ORDERED: 0.9 % Sodium Chloride 1,000 ML IVC SCH (21:45)
[2021-07-05] MEDS ORDERED: Dextrose 4 GM Chewable Tablets PO PRN ×2 (22:12)
[2021-07-05] MEDS ORDERED: D5% in Water 1,000 ML IVC PRN (22:12)
[2021-07-05] MEDS ORDERED: *HR* Dextrose 50 % in Water (Syg) 50 ML SYRINGE IVP PRN (22:12)
[2021-07-05] MEDS: Metoprolol XL (24 HR) Succ 50 MG TAB.ER.24H PO SCH (22:31)
[2021-07-05] MEDS: Apixaban 5 MG TABLET PO SCH (22:31)
[2021-07-05] MEDS: Insulin DETEMIR 100 UNIT/ML X5UNITS SUBQ SCH (22:32)
[2021-07-05 22:36] LABS: Adenovirus Not Detected (Not Detect); Bordetella Pertussis Not Detected (Not Detect); Chlamydophila pneumoniae Not Detected (Not Detect); Coronavirus 229E Not Detected (Not Detect); Coronavirus HKU1 Not Detected (Not Detect); Coronavirus NL63 Not Detected (Not Detect); Coronavirus OC43 Not Detected (Not Detect); Human Metapneumovirus Not Detected (Not Detect); Human Rhinovirus/Enterovirus Not Detected (Not Detect); Influenza A Subtype 2009 H1 Not Detected (Not Detect); Influenza B Not Detected (Not Detect); Mycoplasma pneumoniae Not Detected (Not Detect); Parainfluenza Virus 1 Not Detected (Not Detect); Parainfluenza Virus 2 Not Detected (Not Detect); Parainfluenza Virus 3 Not Detected (Not Detect); Parainfluenza Virus 4 Not Detected (Not Detect); Respiratory Syncytial Virus Not Detected (Not Detect); SARS-CoV-2 Not Detected (Not Detect)
[2021-07-06] MEDS: DilTIAZem 50 MG/50 ML IV.SOLN IVC SCH ×2 (00:49→03:41)
[2021-07-06 05:48] LABS: Basophils % 0.1 %; Eosinophils # 0.1 K/mcL (0.0-0.6); Eosinophils % 1.6 %; Hemoglobin 10.4 g/dL (12.9-16.9); Immature Granulocytes % 0.1 % (0-4); Lymphocytes # 0.5 K/mcL (0.6-4.6); Mean Corpuscular HGB Conc 30.6 g/dL (31.6-35.5); Mean Corpuscular Hemoglobin 25.4 pg (28.0-33.3); Mean Corpuscular Volume 83.1 fL (83.0-100.0); Mean Platelet Volume 10.5 fL (9.4-12.4); Monocytes # 0.6 K/mcL (0.0-1.3); Monocytes % 7.5 %; Neutrophils # 6.5 K/mcL (1.6-8.9); Platelet Count 117 K/mcL (140-400); Red Blood Count 4.09 M/mcL (4.19-5.50); Segmented Neutrophils % 83.7 %; White Blood Count 7.7 K/mcL (4.3-11.1)
[2021-07-06 06:02] LABS: INR 2.2; Prothrombin Time 24.2 Seconds (9.4-12.1)
[2021-07-06 06:12] LABS: Albumin 3.5 g/dL (3.5-5.7); Albumin/Globulin Ratio 1.5 (1.1-2.2); Bilirubin,Total 1.2 mg/dL (0.3-1.0); Calcium 8.3 mg/dL (8.6-10.3); Globulin 2.3 g/dL (2.4-3.5); Magnesium 1.7 mg/dL (1.6-2.6); Phosphorous 2.8 mg/dL (2.7-4.5); Potassium 3.6 mEq/L (3.5-5.1); Total Protein 5.8 g/dL (6.4-8.9)
[2021-07-06] MEDS: Insulin LISPRO 300 UNITS/3 ML VIAL SUBQ SCH ×3 (08:12→17:05)
[2021-07-06] MEDS: Apixaban 5 MG TABLET PO SCH ×2 (08:18→20:51)
[2021-07-06] MEDS ORDERED: Ringers Solution, Lactated 1,000 ML IVC SCH (09:45)
[2021-07-06] MEDS: DilTIAZem CD (24hr) 300 MG CAP.ER.24H PO SCH (09:50)
[2021-07-06] MEDS: Insulin DETEMIR 100 UNIT/ML X5UNITS SUBQ SCH (20:51)
[2021-07-06] MEDS: Metoprolol XL (24 HR) Succ 50 MG TAB.ER.24H PO SCH (20:51)
[2021-07-06] MEDS ORDERED: Insulin LISPRO 300 UNITS/3 ML VIAL SUBQ SCH (21:00)
[2021-07-07 04:12] VITALS: PULSE 67
[2021-07-07 06:49] LABS: Basophils % 0.3 %; Hematocrit 32.8 % (37.5-50.1)
[2021-07-07 06:51] LABS: Eosinophils # 0.2 K/mcL (0.0-0.6); Eosinophils % 5.8 %; Hemoglobin 9.8 g/dL (12.9-16.9); Immature Platelets 3.3 % (1.1-6.1); Lymphocytes # 0.4 K/mcL (0.6-4.6); Lymphocytes % 13.3 %; Mean Corpuscular HGB Conc 29.9 g/dL (31.6-35.5); Mean Corpuscular Hemoglobin 24.9 pg (28.0-33.3); Mean Corpuscular Volume 83.5 fL (83.0-100.0); Mean Platelet Volume 10.8 fL (9.4-12.4); Monocytes # 0.4 K/mcL (0.0-1.3); Monocytes % 11.7 %; Neutrophils # 2.1 K/mcL (1.6-8.9); Platelet Count 97 K/mcL (140-400); Red Blood Count 3.93 M/mcL (4.19-5.50); Red Cell Distribution Width 16.7 % (11.5-14.5); Segmented Neutrophils % 68.9 %; White Blood Count 3.1 K/mcL (4.3-11.1)
[2021-07-07 07:05] LABS: BUN/Creatinine Ratio 28 (6-26); Blood Urea Nitrogen 34 mg/dL (8-23); Calcium 8.4 mg/dL (8.6-10.3); Carbon Dioxide 24 mEq/L (23-29); Chloride 107 mEq/L (98-107); Glucose 101 mg/dL (70-105); Osmolality,Calculated 294 (280-300); Potassium 3.7 mEq/L (3.5-5.1); Sodium 138 mEq/L (136-145); eGFR For African Americans > 60 (> 60); eGFR For Non-African Americans 59 (> 60)
[2021-07-07 08:14] VITALS: BP 121/76; TEMP 98.6
[2021-07-07] MEDS: Apixaban 5 MG TABLET PO SCH (08:37)
[2021-07-07] MEDS: DilTIAZem CD (24hr) 300 MG CAP.ER.24H PO SCH (08:37)
[2021-07-07 08:42] VITALS: O2SAT 99
[2021-07-07] MEDS: Insulin LISPRO 300 UNITS/3 ML VIAL SUBQ SCH (09:11)
== END 2021-07-07 12:35 | disposition home health service (06) ==
LOC: EMEROOARM 18:22 → 3NENU 18:22 → SUATTDRO 21:19 → 3NENU 22:06
PROVIDERS: ADMIT Internal Medicine; ATTEND General Practice